=== PATIENT | female | born 1935 | race Caucasian/White ===

== ENCOUNTER 2023-11-10 18:07 | Inpatient (IN) | payer MEDICARE, SELFPAY ==
[2023-11-10 11:53] VITALS: BP 126/64
[2023-11-10 13:04] VITALS: BP 126/59
[2023-11-10] MEDS: MORPHINE SULFATE 2 MG IV (14:32)
[2023-11-10 14:34] LABS: % Basophils 0.5 % (0-2); % Eosinophils 1.5 % (0-6); % Immature Granulocytes 0.7 % (0-0.5); % Lymphocytes 3.8 % (20.5-51.1); % Monocytes 8.3 % (1.7-9.3); % Neutrophils 85.2 % (42.2-75.2); Absolute Eosinophils 0.1 10^3/uL (0-0.7); Absolute Lymphocytes 0.2 10^3/uL (1.2-3.4); Absolute Monocytes 0.5 10^3/uL (0.1-0.6); Absolute Neutrophils 5.2 10^3/uL (1.4-6.5); Hematocrit 22.2 % (37.0-47.0); Hemoglobin 7.2 g/dL (12.0-16.0); Mean Corp Hgb Conc. 32.4 g/dL (33.0-37.0); Mean Corpuscular Hgb 30.1 pg (27.0-31.0); Mean Corpuscular Volume 92.9 fL (81.0-99.0); Mean Platelet Volume 11.4 fL (7.4-10.4); Nucleated Red Blood Cells % 0.3 %; Platelet Count 109 10^3/uL (130-400); Red Blood Cell Count 2.39 10^6/uL (4.20-5.40); White Blood Cell Count 6.1 10^3/uL (4.8-10.8)
[2023-11-10 14:36] LABS: Lactic Acid 0.8 mmol/L (0.7-2.0)
[2023-11-10 14:46] LABS: NT-proBNP 13100 pg/ml
[2023-11-10 14:48] LABS: ALT (SGPT) < 10 U/L (0-35); AST (SGOT) 27 U/L (14-36); Albumin 3.5 g/dl (3.5-5.0); Alkaline Phosphatase 61 U/L (38-126); Calcium 8.9 mg/dl (8.4-10.2); Carbon Dioxide 19 mmol/L (22-30); Chloride 99 mmol/L (98-107); Glucose 104 mg/dl (70-99); Potassium 3.7 mmol/L (3.5-5.1); Sodium 135 mmol/L (135-145); Total Bilirubin 1.9 mg/dl (0.2-1.3); Total Protein 5.6 g/dl (6.3-8.2)
[2023-11-10 15:06] LABS: Blood Urea Nitrogen 120 mg/dl (7-17)
--- NOTE | 2023-11-10 15:32 | ED.GENMED ---
History of Present Illness
<Alona Camarena PA-C - Last Filed: 11/10/23 17:30>
General
Chief Complaint: Musculo-Skeletal Complaint
Source: patient and care technician
Exam Limitations: none
Time Seen by Provider: 11/10/23 13:16
Nursing documentation reviewed up to this point in time: agreed with
Travel History
Have you had any contact with someone who has COVID-19?: No
Do you have any symptoms of coronavirus? Fever > 100 degrees, chills, cough, shortness of breath, sore throat, loss of taste or smell, muscle aches, or headache?: No
History of Present Illness
History of Present Illness:
pt i s a 88 y/o F with very complex medical history
just discharged after lengthy hospitalization
came in with bruising/rash to b/l CORBY and stayed for pulm edema on lasix, michelle, thrombocytopenia and anemia
was discharged 3 days ago after 2 weeks stay for diuresis and had consultations with hematology/oncology and infectious disease
pt had a fall yesterday when she was with her caregiver and was able to be helped up but has had severe left knee pain since and is unable to move or put weight on it
this is a change from baseline, even though she has always had knee pain, had xray while here and it wa sneg.
she has ongoing petechiae and bruising on her legs which is baseline for weeks, and acutally that's why the family and caregiver brought her here originally
it appears according to discharge summary that she had low platelets and anemia hg 7-8 region
she had her eliquis held it appears
she had no head strike yesterday
no relief with tylenol and tramadol for apin
has round the clock care at home
pt says she chronically is hypothermic
Past History
<Alona Camarena PA-C - Last Filed: 11/10/23 17:30>
Past History
ED Past Medical History: Arrthythmia (a fib), Cancer (lymphoma with chemo), HTN, Hypercholesterolemia, Hypothyroidism, Other (Renal insufficiency, bowel obstruction, diverticulitis, hemorrhoids, stress incontinence, gout, osteoarthritis, cellulitis,
cataracts), Other (thrombocytopenia, vitamin D deficiency) and Other (UTI, parathyroid abnl., arthritis, iron-deficiency anemia)
ED Past Surgical History: Bowel resection (ileostomy), Cardiac (Cardioversion, cardiac catheterization, pacemaker insertion multiple times), Gynecological (D&C, hysterectomy in 1984), Orthopedic (Left knee arthroscopy, left knee replacement lumbar
laminectomy) and Other (ventral hernia repair)
Social History
Tobacco: Former smoker
Alcohol: None
Drug: None
Personal:
Living: with family
Employment: Retired
Family History
Family History: Other (non contributory)
Review of Systems
<Alona Camarean PA-C - Last Filed: 11/10/23 17:30>
Review of Systems
Allergies reviewed?: Yes
All Other Systems: Not applicable
Phy Exam
<Alona Camarena PA-C - Last Filed: 11/10/23 17:30>
Physical Exam
Physical Exam:
GENERAL: Alert , uncomfortable with movement, elevated BMI
HEAD: NCAT
NECK: no midline tenderness, active ROM intact, no paraspinal muscle tenderness;
CARDIAC: Regular rate and rhythm, + edema, symmetric
LUNGS: Clear breath sounds bilaterally, no acute respiratory distress, no wheezes/rales/rhonchi
ABDOMEN: Soft, without focal tenderness, no r/g, no cvat, normal bowel sounds, nondistended
NEUROLOGICAL: Alert and oriented, no focal neuro deficits, CN intact, 5/5 strength, sensation intact,
SKIN: Warm and dry,
petechiae b/l LE, sepcifically in L knee region, which family says chronic
hyperpigmentation and bruising to b/l LE
MUSCULOSKELETAL: edema
left knee swelling with tendenress and severely limited ROM ,specifically flexion
PSYCH: Normal and appropriate interaction.
Course
<Alona Camarena PA-C - Last Filed: 11/10/23 17:30>
Orders/Labs/Results
Orders:
Orders
11/10/23 13:48
CR Knee - Left 4 Or More View* Urgent
Comment:
Reason For Exam: left knee pain after fall
11/10/23 13:49
Electrocardiogram (*1) Urgent
Reason for Study: Other
Other Reason for Exam: sepsis
EKG- Treatment ONCE
11/10/23 13:50
Morphine Sulfate 2 mg IV NOW STA
11/10/23 14:12
Complete Blood Count/With Diff Urgent
Comprehensive Metabolic Panel Urgent
Lactic Acid Q4H
Comment: CANCEL 2nd LACTIC ACID IF 1st LACTIC ACID IS LESS THAN 2
NT-proBNP Urgent
TSH Reflex To Free T4 Urgent
Blood Culture Q30M
JORDIN Source: Blood/Venous
Specimen Description:
11/10/23 Dinner
Sodium, 2 Gram
At Your Request: Full Participation
Fluid Restriction: 1440 mL/day (48 oz)
11/10/23 15:51
Venous Doppler Lwr Ext Left [US Periph Venous LOWER Ext LT] Urgent
Comment:
Reason For Exam: lower ext edema
11/10/23 16:33
CT Lower Ext W/o Iv Cont Lt Urgent
Comment:
Reason For Exam: femur fracture, eval down below knee hardware
11/10/23 17:27
Admit/Transfer Patient As Directed
Co-Sign Provider:
Level of Care: Inpatient admission
Assign to:: Medical/Surgical
Physician / Group: Can
Diagnosis: Left Femur Fracture
Reason for Hospitalization: Ortho Consult, Femur Fracture
Expected length of stay greater than two midnights?: Yes
ELOS- Estimated Length of Stay in days: 3
I certify the patient meets the requirements for IP care: Yes
11/10/23 17:31
Code Status As Directed
Resuscitation Status: Full Code
11/10/23 19:47
Melatonin 10 mg PO HSPRN PRN
Tramadol HCl [Ultram] 25 mg PO Q6HPRN PRN
11/10/23 19:47
ORTHOPEDIC CONSULT Routine
Consulting Provider: Simon Beltran
Was physician already notified: Yes
Activity As Directed
Activity Level: Bedrest
I&O [Intake/ Output] As Directed
Frequency: q12h
Immobilizer [Braces/Immobilizers] As Directed
Type of Brace/Immobilizer: Knee immobilizer
Location for Brace/Immobilizer: Left
Vital Signs As Directed
Frequency: Per unit guidelines
Weight As Directed
Frequency: Daily
Weight Bearing Status As Directed
Weight bearing to: Left lower extremity
Type: Non Wt. bearing
Ot Eval And Treat Routine
Pt Eval And Treat Routine
Activity Level: Out of Bed- Chair
With Assistance
11/10/23 20:00
Apixaban [Eliquis] 2.5 mg PO BID
HydrALAZINE [Apresoline] 25 mg PO BID
Torsemide [Demadex] 40 mg PO BID AT 0800,1600
11/10/23 20:51
Alprazolam [Xanax] 0.25 mg PO TIDPRN PRN
11/10/23 21:24
Blood Culture Q30M
JORDIN Source: Blood/Venous
Specimen Description:
11/10/23 22:00
Acetaminophen [Tylenol] 1,000 mg PO TID
11/11/23 06:53
Basic Metabolic Panel IN AM
Complete Blood Count/No Diff IN AM
Magnesium IN AM
11/11/23 07:00
Levothyroxine [Synthroid] 50 mcg PO DAILY AT 0700
11/11/23 08:00
Allopurinol [Zyloprim] 100 mg PO DAILY
Cholecalciferol (Vitamin D3) [VITAMIN D3 (cholecalciferol)] 2,000 units PO DAILY
ISOSORBIDE MONOnitrate ER [Imdur (Extended Release)] 30 mg PO DAILY
Metoprolol Xl [Toprol Xl] 50 mg PO DAILY
11/11/23 16:00
vibegron [Gemtesa] 0 mg PO DAILY@1600
11/12/23 08:00
Loratadine [Claritin] 10 mg PO Q48H
11/12/23 16:00
Ferrous Sulfate [Feosol] 325 mg PO MOWEFR@1600
Abnormal Lab Results
11/10/23
14:12
RBC 2.39 L 10^6/uL
(4.20-5.40)
Hgb 7.2 L g/dL
(12.0-16.0)
Hct 22.2 L %
(37.0-47.0)
MCHC 32.4 L g/dL
(33.0-37.0)
RDW 17.0 H %
(11.5-14.5)
Plt Count 109 L 10^3/uL
(130-400)
MPV 11.4 H fL
(7.4-10.4)
Absolute Lymphs (auto) 0.2 L 10^3/uL
(1.2-3.4)
Immature Gran % 0.7 H %
(0-0.5)
Neutrophils % 85.2 H %
(42.2-75.2)
Lymphocytes % 3.8 L %
(20.5-51.1)
Carbon Dioxide 19 L mmol/L
(22-30)
BUN 120 H* mg/dl
(7-17)
Creatinine 1.8 H mg/dL
(0.6-1.0)
Glucose 104 H mg/dl
(70-99)
Total Bilirubin 1.9 H mg/dl
(0.2-1.3)
Total Protein 5.6 L g/dl
(6.3-8.2)
11/10/23 14:12
11/10/23 14:12
Vital Signs
Initial and Last Documented VS:
Initial Vital Signs
Pulse Resp BP Pulse Ox
74 18 126/64 96
11/10/23 11:53 11/10/23 11:53 11/10/23 11:53 11/10/23 11:53
Last Documented Vital Signs
Temp Pulse Resp BP Pulse Ox
96.7 F L 77 16 106/47 97
11/10/23 23:50 11/10/23 23:50 11/10/23 23:50 11/10/23 23:50 11/10/23 23:50
<Mahesh Hare MD - Last Filed: 11/11/23 08:08>
Orders/Labs/Results
Orders:
Orders
11/10/23 13:48
CR Knee - Left 4 Or More View* Urgent
Comment:
Reason For Exam: left knee pain after fall
11/10/23 13:49
Electrocardiogram (*1) Urgent
Reason for Study: Other
Other Reason for Exam: sepsis
EKG- Treatment ONCE
11/10/23 13:50
Morphine Sulfate 2 mg IV NOW STA
11/10/23 14:12
Complete Blood Count/With Diff Urgent
Comprehensive Metabolic Panel Urgent
Lactic Acid Q4H
Comment: CANCEL 2nd LACTIC ACID IF 1st LACTIC ACID IS LESS THAN 2
NT-proBNP Urgent
TSH Reflex To Free T4 Urgent
Blood Culture Q30M
JORDIN Source: Blood/Venous
Specimen Description:
11/10/23 Dinner
Sodium, 2 Gram
At Your Request: Full Participation
Fluid Restriction: 1440 mL/day (48 oz)
11/10/23 15:51
Venous Doppler Lwr Ext Left [US Periph Venous LOWER Ext LT] Urgent
Comment:
Reason For Exam: lower ext edema
11/10/23 16:33
CT Lower Ext W/o Iv Cont Lt Urgent
Comment:
Reason For Exam: femur fracture, eval down below knee hardware
11/10/23 17:27
Admit/Transfer Patient As Directed
Co-Sign Provider:
Level of Care: Inpatient admission
Assign to:: Medical/Surgical
Physician / Group: Can
Diagnosis: Left Femur Fracture
Reason for Hospitalization: Ortho Consult, Femur Fracture
Expected length of stay greater than two midnights?: Yes
ELOS- Estimated Length of Stay in days: 3
I certify the patient meets the requirements for IP care: Yes
11/10/23 17:31
Code Status As Directed
Resuscitation Status: Full Code
11/10/23 19:47
Melatonin 10 mg PO HSPRN PRN
Tramadol HCl [Ultram] 25 mg PO Q6HPRN PRN
11/10/23 19:47
ORTHOPEDIC CONSULT Routine
Consulting Provider: Simon Beltran
Was physician already notified: Yes
Activity As Directed
Activity Level: Bedrest
I&O [Intake/ Output] As Directed
Frequency: q12h
Immobilizer [Braces/Immobilizers] As Directed
Type of Brace/Immobilizer: Knee immobilizer
Location for Brace/Immobilizer: Left
Vital Signs As Directed
Frequency: Per unit guidelines
Weight As Directed
Frequency: Daily
Weight Bearing Status As Directed
Weight bearing to: Left lower extremity
Type: Non Wt. bearing
Ot Eval And Treat Routine
Pt Eval And Treat Routine
Activity Level: Out of Bed- Chair
With Assistance
11/10/23 20:00
Apixaban [Eliquis] 2.5 mg PO BID
HydrALAZINE [Apresoline] 25 mg PO BID
Torsemide [Demadex] 40 mg PO BID AT 0800,1600
11/10/23 20:51
Alprazolam [Xanax] 0.25 mg PO TIDPRN PRN
11/10/23 21:24
Blood Culture Q30M
JORDIN Source: Blood/Venous
Specimen Description:
11/10/23 22:00
Acetaminophen [Tylenol] 1,000 mg PO TID
11/11/23 06:53
Basic Metabolic Panel IN AM
Complete Blood Count/No Diff IN AM
Magnesium IN AM
11/11/23 07:00
Levothyroxine [Synthroid] 50 mcg PO DAILY AT 0700
11/11/23 08:00
Allopurinol [Zyloprim] 100 mg PO DAILY
Cholecalciferol (Vitamin D3) [VITAMIN D3 (cholecalciferol)] 2,000 units PO DAILY
ISOSORBIDE MONOnitrate ER [Imdur (Extended Release)] 30 mg PO DAILY
Metoprolol Xl [Toprol Xl] 50 mg PO DAILY
11/11/23 16:00
vibegron [Gemtesa] 0 mg PO DAILY@1600
11/12/23 08:00
Loratadine [Claritin] 10 mg PO Q48H
11/12/23 16:00
Ferrous Sulfate [Feosol] 325 mg PO MOWEFR@1600
Abnormal Lab Results
11/10/23
14:12
RBC 2.39 L 10^6/uL
(4.20-5.40)
Hgb 7.2 L g/dL
(12.0-16.0)
Hct 22.2 L %
(37.0-47.0)
MCHC 32.4 L g/dL
(33.0-37.0)
RDW 17.0 H %
(11.5-14.5)
Plt Count 109 L 10^3/uL
(130-400)
MPV 11.4 H fL
(7.4-10.4)
Absolute Lymphs (auto) 0.2 L 10^3/uL
(1.2-3.4)
Immature Gran % 0.7 H %
(0-0.5)
Neutrophils % 85.2 H %
(42.2-75.2)
Lymphocytes % 3.8 L %
(20.5-51.1)
Carbon Dioxide 19 L mmol/L
(22-30)
BUN 120 H* mg/dl
(7-17)
Creatinine 1.8 H mg/dL
(0.6-1.0)
Glucose 104 H mg/dl
(70-99)
Total Bilirubin 1.9 H mg/dl
(0.2-1.3)
Total Protein 5.6 L g/dl
(6.3-8.2)
11/10/23 14:12
11/10/23 14:12
Vital Signs
Initial and Last Documented VS:
Initial Vital Signs
Pulse Resp BP Pulse Ox
74 18 126/64 96
11/10/23 11:53 11/10/23 11:53 11/10/23 11:53 11/10/23 11:53
Last Documented Vital Signs
Temp Pulse Resp BP Pulse Ox
96.7 F L 77 16 106/47 97
11/10/23 23:50 11/10/23 23:50 11/10/23 23:50 11/10/23 23:50 11/10/23 23:50
<Alona Camarena PA-C - Last Filed: 11/10/23 17:30>
MDM/Problems Addressed
Differential Diagnosis Includes:
knee fracture, contusion, deconditioning, hypothermia, sepsis, hypocortisolism
MDM/Problems Addressed:
88 yo F with many chronic medical problems
here for L knee pain after fall yesterday
unable to bear weight
has ongoin chronic problems that she just had lengthy hospitalization for: CHF, thrombocytopenia, anemia of renal disease, hypothermia which she says is chornic
the major issue today being the left knee pain
she has evidence of distal left femur fracture on xray indep reviewed by me
d/w ortho who recommended ct the knee but likely non op
recommended knee immbob but dueto body habiuts unable
will admit to meidcine
pending cultures but the hypothermia is likely chronic and not sepsis.
<Alona Camarena PA-C - Last Filed: 11/10/23 17:30>
*Critical Care Note
Total Time (30-74mins, 75-104mins- exclusive of procedures): Not Applicable
ED Attending Note
<Alona Camarena PA-C - Last Filed: 11/10/23 17:30>
-
Portions of this chart may have been created with voice recognition software.� Occasional wrong word or��sound alike� substitutions may have occurred due to the inherent limitations of voice recognition software.
<Mahesh Hare MD - Last Filed: 11/11/23 08:08>
ED Attending Note
I performed the substantive portion of visit, reviewed & personally made and approve the management plan that is documented in note by myself or EM.: Yes
ED Attending Note:
Patient with recurrent hypothermia, along with worsening left lower leg pain, as well as new trauma from fall yesterday. Patient started on Rakan hugger and will be admitted for further evaluation and treatment.
X-ray with likely femur fracture. Hardware intact. At the recommendation of orthopaedic surgery, will obtain CT lower extremity. No indication for any antibiotics at this time. In addition, will obtain LE US to evaluate for DVT, as Eliquis was for
brief period during recent admission.
Blood culture pending.
Discharge Plan
Departure
Patient Disposition: Admit
Date of Disposition: 11/10/23
Time of Disposition: 16:36
Admit to: Med/Surg
Presentation/result/management discussed w/ accepting MD/DO: Hospitalist
Condition: Fair
Covid-19: Not Applicable
Discharge Problem:
Closed femur fracture
Interventions
Interventions:
*Risk Screen - Suicide Last Done: 11/10/23 20:32
*General Assessment Last Done: 11/10/23 12:35
ED- Fall Risk Assessment Last Done: 11/10/23 12:35
*ED COVID-19 Vaccine History Last Done: 11/10/23 20:30
*Nursing Disposition Last Done: 11/10/23 20:32
ED-Musculoskeletal Assessment Last Done: 11/10/23 12:35
ED- Neurological Assessment Last Done: 11/10/23 12:35
ED-Skin Assessment Last Done: 11/10/23 12:35
Discharge Date and Time
Discharge Date/Time: 11/10/23 20:33
[2023-11-10 16:34] VITALS: BP 125/82
--- NOTE | 2023-11-10 17:15 | HPS.HSE ---
Addendum entered and electronically signed by Chrissie North MD 11/10/23 18:09:
I agree with the PA-C note
Gen: on ryan james
HEENT : no jvd
lungs : clear
psych: calm
gi: soft non distended
MSK : bilat lower extrem edema
neuro : non focal, follow commands
Distal left femur frx - pain control
await CT scan LE for further characterization
consult ortho, suspected non operative management
PT/OT
Chronic hypothermia - monitor
Anemia of chronic disease -maintain > 7, consent obtained in ER.
Chronic HFpEF/afib (permanent) - compensated from cardiovascular standpoint at this time.
d/w pt dtr
Original Note:
Family Physician
-
Family Physician: Tray Valadez
Chief Complaint
-
Fall with Left Knee Pain
History of Present Illness
Patient is an 88-year-old female with complex past medical history with recent hospitalization due to bilateral lower extremity ecchymosis secondary to thrombocytopenia exacerbated by Eliquis use, who presents with severe left knee pain following a
fall yesterday. Additional history is provided by caregiver and patient's daughter at the bedside. Patient sustained a fall in her bathroom yesterday. It. She got tangled up in her walker. It did not appear that she landed on the knee, but
since the incident she has been complaining of increased left knee pain with inability to bear weight. Workup in the emergency department revealed a mid/distal left femur fracture. Hospitalist group was consulted to evaluate the patient for
admission to the hospital.
Medical History
Past Medical History
Past Medical History: Reports Other
Additional Past Medical History:
Chronic HFpEF
Permanent Atrial Fibrillation
Sick sinus syndrome s/p pacemaker
Essential Hypertension
Hyperlipidemia
CKD stage IIIB
Anemia of Chronic Disease
Hypothyroidism
Dementia
Anxiety/Depression
Morbid Obesity due to excess calories
Rheumatoid arthritis
Chronic Pain
Hx ITP
Hx ESBL E. coli UTI
Hx Ho syndrome
Past Surgical History: Reports Other
Additional Past Surgical History:
Ileostomy
Hysterectomy
Ventral hernia repair
Left knee replacement
Lumbar laminectomy
Social History
Tobacco: Former Smoker
Alcohol: None
Living: With Family
Family History
Family History: Not pertinent
Allergies / Home Medications
Allergies reflects when Allergies were last updated in [facility].
Home Medications with original date entered in [facility]
Allergy/Medication List:
Allergies
Allergy/AdvReac Type Severity Reaction Status Date / Time
amoxicillin [From Augmentin] Allergy mouth Verified 11/10/23 11:51
sores;
tolerated
ceftriaxone
carvedilol [From Coreg] Allergy Unknown Verified 11/10/23 11:51
chlorpheniramine polistirex Allergy SEE Verified 11/10/23 11:51
[From Tussionex] COMMENTS
clavulanic acid Allergy mouth sores Verified 11/10/23 11:51
[From Augmentin]
codeine [Codeine] Allergy blood Verified 11/10/23 11:51
pressure
and mood
changes
erythromycin base Allergy MYCINS = Verified 11/10/23 11:51
[Erythromycin Base] SEVERE
THRUSH
hydrocodone polistirex Allergy SEE Verified 11/10/23 11:51
[From Tussionex] COMMENTS
iodine [Iodine] Allergy difficulty Verified 11/10/23 11:51
breathing
oxycodone HCl [From Tylox] Allergy blood Verified 11/10/23 11:51
pressure
and mood
changes
rofecoxib [From Vioxx] Allergy high blood Verified 11/10/23 11:51
pressure,
fluid
retention
shellfish derived Allergy difficulty Verified 11/10/23 11:51
[Shellfish Derived] breathing
tolmetin sodium Allergy high blood Verified 11/10/23 11:51
[From Tolectin DS] pressure,
fluid
retention
Home Medications
apixaban 2.5 mg tablet (Eliquis) 2.5 mg PO BID Blood clot prevention/tx 02/10/21
allopurinol 100 mg tablet 100 mg PO DAILY Gout 11/11/21
levothyroxine 50 mcg tablet 50 mcg PO DAILY Thyroid 11/11/21
metoprolol succinate 50 mg tablet,extended release 24 hr 50 mg PO DAILY Heart disease/condition 11/11/21
methenamine hippurate 1 gram tablet 1 g PO BID Urinary Issue 09/18/23
vibegron 75 mg tablet (Gemtesa) 75 mg PO DAILY@1600 Urinary Issue 09/18/23
d-mannose 500 mg capsule 500 mg PO DAILY Supplement 10/22/23
ferrous sulfate 325 mg (65 mg iron) tablet 325 mg PO MOWEFR@1600 Supplement 10/22/23
therapeutic multivitamin 2 tab PO DAILY Supplement 10/22/23
hydralazine 25 mg tablet 25 mg PO BID 30 days #60 tabs 11/04/23
isosorbide mononitrate 30 mg tablet,extended release 24 hr 30 mg PO DAILY 30 days #30 tabs 11/04/23
torsemide 20 mg tablet 40 mg PO BID Fluid Retention/Swelling 30 days #60 tabs 11/04/23
Lions Brooks Supplement 2 cap PO DAILY 11/10/23
acetaminophen 650 mg tablet,extended release 1,300 mg PO TID 11/10/23
alprazolam 0.5 mg tablet 0.25 mg PO TID PRN mild anxiety 11/10/23
alprazolam 0.5 mg tablet 0.5 mg PO TID PRN severe anxiety 11/10/23
cholecalciferol (vitamin D3) 50 mcg (2,000 unit) tablet 50 mcg PO DAILY 11/10/23
diclofenac sodium 1 % topical gel 4 g topical BID apply to left knee 11/10/23
diphenhydramine HCl 25 mg capsule (Benadryl) 25 mg PO HS PRN sleep 11/10/23
fexofenadine 180 mg tablet 180 mg PO DAILY 11/10/23
melatonin 5 mg tablet 10 mg PO HS PRN sleep 11/10/23
miconazole nitrate 2 % topical powder (Miconazorb AF) 1 applic topical BID PRN apply under B/L breasts/armpits/abd 11/10/23
pramoxine 1 % lotion 1 applic topical BID PRN apply to B/L arms/legs/back/hands 11/10/23
tramadol 50 mg tablet 50 mg PO TID 11/10/23
Review of Systems
-
Unable to obtain full review of systems at this time due to: Dementia
Respiratory: Denies Cough or Trouble Breathing
Cardiac: Denies Chest Pain or Palpitations
Physical Exam
Vital Signs
Vital Signs
Temp Pulse Resp BP Pulse Ox
95.7 F L 72 18 125/82 98
11/10/23 16:34 11/10/23 16:34 11/10/23 13:04 11/10/23 16:34 11/10/23 16:34
Physical Exam
General: Comfortable, Conversant and Morbidly Obese
HEENT: Anicteric and Moist mucous membranes
Respiratory: Clear (Anteriorly) and Non Labored Respirations
Cardiac: S1/S2 and Regular Rhythm
GI: Soft and Non Tender
Musculoskeletal: No Clubbing, No Cyanosis and Other (Bilateral Lower Ext Edema)
Skin: Warm, Dry and Other (Ecchymosis and Petechiae to bilateral lower extremities)
Laboratory Results
-
11/10/23 14:12
11/10/23 14:12
Laboratory Results
Lactic Acid Cancelled 11/10/23 18:00
Total Bilirubin 1.9 mg/dl (0.2-1.3) H 11/10/23 14:12
AST 27 U/L (14-36) 11/10/23 14:12
ALT < 10 U/L (0-35) 11/10/23 14:12
Alkaline Phosphatase 61 U/L (38-126) 11/10/23 14:12
Data Reviewed
-
Lab Data: Labs Reviewed by me
Old Records: Reviewed
Impression/Plan
-
Distal Left Femur Fracture
-Consult Orthopedics
-Check CT Scan
-Continue immobilization and non-weight bearing
-Continue Tylenol and Tramadol
Hypothermia, likely autonomic dysfunction
-Monitor temperature
Thrombocytopenia
-Platelet count is improving
Anemia of Chronic Disease
-Hgb slightly lower than baseline
-Continue iron supplement
-Blood consent obtained
Elevated Bilirubin and BUN
-Both are likely related to ecchymosis and blood reabsorption
Chronic HFpEF
-Continue torsemide
-Monitor Is&Os and Daily Weights
Permanent Atrial Fibrillation
Sick Sinus Syndrome s/p pacemaker
-Continue Eliquis for anticoagulation
-Continue metoprolol for rate control
Essential Hypertension
-Continue metoprolol, hydralazine and isosorbide mononitrate
CKD stage IIIB
-Creatinine at baseline
Hypothyroidism
-Continue levothyroxine
Dementia
-Monitor for mood/behavior changes during hospitalization
Anxiety/Depression/Insomnia
-Continue low dose alprazolam prn
-Continue melatonin
Morbid Obesity due to excess calories
-Affects all aspects of care
DVT proph: Eliquis
Code Status: Full Code
[2023-11-10 20:11] VITALS: BP 130/60
--- NOTE | 2023-11-10 20:15 | PTCARENOTE ---
Pt arrived from ED, transferred to bed. aaox3, cooperative. pox 95% on RA. denies cp or dizziness. oriented to room. Pt c/o severe L hip pain, states 'I take tramadol at home for my arthritis and it barely helps. I am having a lot of pain.'
Contacted house [employer], tramadol 50mg po x1 now ordered. Spoke to daughter on the phone in regards to medications ordered and pain regimen. Call luevano within reach.
[2023-11-10] MEDS: TYLENOL 1000 MG PO (21:29)
[2023-11-10] MEDS: ELIQUIS 2.5 MG PO (21:30)
[2023-11-10] MEDS: MELATONIN 10 MG PO (21:30)
[2023-11-10] MEDS: DEMADEX 40 MG PO (21:31)
[2023-11-10] MEDS: ULTRAM 50 MG PO (21:31)
[2023-11-10] MEDS: APRESOLINE 25 MG PO (21:35)
[2023-11-10 23:50] VITALS: BP 106/47
[2023-11-11 06:00] VITALS: BMI 33.2
[2023-11-11] MEDS: ULTRAM 25 MG PO ×2 (06:04→20:14)
[2023-11-11] MEDS: SYNTHROID 50 MCG PO (06:05)
[2023-11-11 07:00] VITALS: BP 125/71
[2023-11-11 08:07] LABS: Hematocrit 23.8 % (37.0-47.0); Hemoglobin 7.5 g/dL (12.0-16.0); Mean Corp Hgb Conc. 31.5 g/dL (33.0-37.0); Mean Corpuscular Hgb 30.6 pg (27.0-31.0); Mean Corpuscular Volume 97.1 fL (81.0-99.0); Mean Platelet Volume 10.6 fL (7.4-10.4); Platelet Count 107 10^3/uL (130-400); Red Blood Cell Count 2.45 10^6/uL (4.20-5.40); Red Cell Dist. Width 17.2 % (11.5-14.5); White Blood Cell Count 5.9 10^3/uL (4.8-10.8)
--- NOTE | 2023-11-11 08:12 | W.PN.UPDATE ---
Update Note
Progress Note Update
Full orthopedic consult dictated:
Dx: Left periprosthetic femur fracture
Plan: Nonsurgical treatment with knee immobilizer, NWB, serial xrays. Follow up 2 weeks for xray in office.
[2023-11-11 08:38] LABS: Blood Urea Nitrogen 111 mg/dl (7-17); Calcium 8.9 mg/dl (8.4-10.2); Carbon Dioxide 21 mmol/L (22-30); Chloride 102 mmol/L (98-107); Estimated Creatinine Clearance 20 ml/min; Glucose 80 mg/dl (70-99); Magnesium 2.1 mg/dl (1.6-2.3); Potassium 3.6 mmol/L (3.5-5.1); Sodium 136 mmol/L (135-145)
[2023-11-11] MEDS: IMDUR (EXTENDED RELEASE) 30 MG PO (09:08)
[2023-11-11] MEDS: TYLENOL 1000 MG PO ×2 (09:08→15:18)
[2023-11-11] MEDS: TOPROL XL 50 MG PO (09:08)
[2023-11-11] MEDS: ELIQUIS 2.5 MG PO ×2 (09:09→20:11)
[2023-11-11] MEDS: VITAMIN D3 (cholecalciferol) 2000 UNITS PO (09:09)
[2023-11-11] MEDS: APRESOLINE 25 MG PO (09:10)
[2023-11-11] MEDS: DEMADEX 40 MG PO ×2 (09:10→15:18)
[2023-11-11] MEDS: ZYLOPRIM 100 MG PO (09:10)
--- NOTE | 2023-11-11 11:18 | W.PN.HOSP.TC ---
Addendum entered and electronically signed by Chrissie North MD 11/11/23 16:41:
suspected traumatic fracture
Original Note:
Today's Communication/Plan
-
see plan
Assessment / Plan
Assessment / Plan
Distal Left Femur Fracture
-apprec Orthopedics
-non operative management planned. repeat imaging in 2 weeks, outpt follow up with ortho.
-Continue immobilization and non-weight bearing
-Continue Tylenol and Tramadol
Hypothermia, likely autonomic dysfunction
-Monitor temperature
resolved. no acute infectious sx.
Thrombocytopenia
-Platelet count is improving
Anemia of Chronic Disease
-Hgb slightly lower than baseline
-Continue iron supplement
-Blood consent obtained
Elevated Bilirubin and BUN
-Both are likely related to ecchymosis and blood reabsorption
Chronic HFpEF
-Continue torsemide
-Monitor Is&Os and Daily Weights
Permanent Atrial Fibrillation
Sick Sinus Syndrome s/p pacemaker
-Continue Eliquis for anticoagulation
-Continue metoprolol for rate control
Essential Hypertension
-Continue metoprolol, hydralazine and isosorbide mononitrate
CKD stage IIIB
-Creatinine at baseline
Hypothyroidism
-Continue levothyroxine
Dementia
-Monitor for mood/behavior changes during hospitalization
Anxiety/Depression/Insomnia
-Continue low dose alprazolam prn
-Continue melatonin
Morbid Obesity due to excess calories
-Affects all aspects of care
DVT proph: Eliquis
Code Status: Full Code
Anticipated Discharge: 24 - 48 hours
Subjective/Interval History
-
Date of Service: November 11, 2023
pt states pain is adequately controlled
Objective Data
-
Labs:
Laboratory Results
11/11/23
06:53
WBC 5.9
Hgb 7.5 L
Hct 23.8 L
Plt Count 107 L
Sodium 136
Potassium 3.6
Chloride 102
Carbon Dioxide 21 L
BUN 111 H*
Creatinine 1.9 H
Glucose 80
Calcium 8.9
Vital Signs:
Vital Signs
Temp Pulse Resp BP Pulse Ox
97.7 F 84 18 125/71 96
11/11/23 07:00 11/11/23 07:00 11/11/23 07:00 11/11/23 07:00 11/11/23 07:00
I&O
11/10/23 11/11/23 11/12/23
06:59 06:59 06:59
Output Total 600 / 600
Balance -600 / -600
Review of Systems
-
History Source: Patient
All other systems: Reviewed and negative
Physical Exam
-
General: Well Developed and No Apparent Distress
HEENT: Normocephalic, Atraumatic and Moist Mucous Membranes
Respiratory: Clear to Auscultation
Cardiac: Regular Rhythm and S1/S2; Negative Murmur, Rub or Gallop
GI: Soft, Nontender, Nondistended and Normal Bowel Sounds; Negative Organomegaly
Rectal: Deferred by Provider
Musculoskeletal: No Clubbing, No Cyanosis, No Edema and Other (lle in immobilizer.)
Skin: Negative Rash
Neuro: Nonfocal/Grossly Intact
Psych: Calm
Data Reviewed
-
Labs: Labs Reviewed by me
--- NOTE | 2023-11-11 11:30 | WOUNDNOTE ---
APOLINAR RN NOTE: Admitted with closed femur fracture, see chart for PMH. Patient known to service from frequent admissions. Spoke to caregiver Mo at bedside who confirmed appliances were changed yesterday. No leakage noted from pouches, family is
bringing in supplies. Mo states she is still using Hydrofera blue dressing to tiny ulcer above mucous fistula and is healing. Caregiver to change next appliance. No other skin issues reported by nursing or caregiver, will sign off unless needed.
[2023-11-11 11:44] VITALS: BP 94/43; O2SAT 93
[2023-11-11 12:06] VITALS: BP 94/43; PULSE 71; O2SAT 94
--- NOTE | 2023-11-11 14:03 | CM ---
client success manager reviewed patient's chart and met with patient and caregiver, Yaz in home. Patient lives with her daughter and son in law, in a 2 story home, patient has a 1st floor set up with hospital bed, walker and w/c in home, patient has aides
12/05, and family supports, patient is current with [facility]. Patient is waiting on a call from the physical therapy and is not sure whether she should take patient home of skilled placement, [facility]
Plan; Home v's skilled placement.
[2023-11-11 15:00] VITALS: BP 104/56
--- NOTE | 2023-11-11 15:02 | PN.CDI ---
CDI
- -
CDI:
Physician Documentation Request
Admit Date: 11/10/23 18:07
Dear Doctor Can,
Please review the following and provide your response in the progress notes.
Clinical Indicators:
Bone Densitometry, 10/24/09
#IMPRESSION: Osteopenia in the femoral neck which carries an increase risk for fracture.
ED, 11/10/23
#ED Past Surgical History: ...Gynecological (D&C, hysterectomy in 1984)...
H+P, 11/10/23
#Patient sustained a fall in her bathroom yesterday.
#She got tangled up in her walker.
It did not appear that she landed on the knee,
#...but since the incident she has been complaining of
#...increased left knee pain with inability to bear weight.
#Workup in the emergency department revealed a mid/distal left femur fracture.
Ortho PN, 11/11/23
#...Left periprosthetic femur fracture
#...Nonsurgical treatment with knee immobilizer, NWB, serial xrays.
Please clarify the following regarding the likely/suspected etiology of the left femur periprosthetic fracture:
Multifactorial, due to low level trauma and age related osteoporosis
Traumatic fracture only
Other
Type Fracture
Age-related With current pathological fx
Drug induced (specify drug) without current pathological fx
Idiopathic
Osteoporosis of disuse
Due to post surgical malabsorption
Post traumatic
Post oophorectomy osteoporosis
Use of terms such as suspected, likely, concern for, or probable (associated with a specific diagnosis that is being evaluated, monitored, or treated as if it exists) are acceptable and can be coded in the inpatient setting, when documented at the
time of discharge.
Thank you,
Ladonna Mejnivar RN BSN CCDS
CDI Specialist
please contact via tiger text
Please use your independent medical judgment in providing your response.
[2023-11-11 19:58] VITALS: BP 103/55
[2023-11-11] MEDS: APRESOLINE PO (20:11)
[2023-11-11] MEDS: TYLENOL PO (22:51)
[2023-11-11 23:15] VITALS: BP 110/55
[2023-11-12] MEDS: SYNTHROID 50 MCG PO (05:58)
[2023-11-12 06:00] VITALS: BMI 34.4
[2023-11-12 07:00] VITALS: BP 136/57
[2023-11-12 09:01] LABS: % Basophils 0.7 % (0-2); % Eosinophils 2.5 % (0-6); % Immature Granulocytes 0.7 % (0-0.5); % Lymphocytes 7.3 % (20.5-51.1); % Monocytes 12.8 % (1.7-9.3); Absolute Eosinophils 0.1 10^3/uL (0-0.7); Absolute Lymphocytes 0.4 10^3/uL (1.2-3.4); Absolute Monocytes 0.7 10^3/uL (0.1-0.6); Absolute Neutrophils 4.3 10^3/uL (1.4-6.5); Hematocrit 22.4 % (37.0-47.0); Hemoglobin 7.3 g/dL (12.0-16.0); Mean Corp Hgb Conc. 32.6 g/dL (33.0-37.0); Mean Corpuscular Hgb 30.5 pg (27.0-31.0); Mean Corpuscular Volume 93.7 fL (81.0-99.0); Mean Platelet Volume 9.2 fL (7.4-10.4); Nucleated Red Blood Cells % 0.4 %; Platelet Count 108 10^3/uL (130-400); Red Blood Cell Count 2.39 10^6/uL (4.20-5.40); Red Cell Dist. Width 17.5 % (11.5-14.5); White Blood Cell Count 5.6 10^3/uL (4.8-10.8)
[2023-11-12] MEDS: ELIQUIS 2.5 MG PO ×2 (09:07→22:01)
[2023-11-12] MEDS: CLARITIN 10 MG PO (09:07)
[2023-11-12] MEDS: APRESOLINE 25 MG PO (09:08)
[2023-11-12] MEDS: IMDUR (EXTENDED RELEASE) 30 MG PO (09:09)
[2023-11-12] MEDS: TYLENOL 1000 MG PO ×3 (09:09→22:01)
[2023-11-12] MEDS: ZYLOPRIM 100 MG PO (09:09)
[2023-11-12] MEDS: DEMADEX 40 MG PO ×2 (09:10→15:17)
[2023-11-12] MEDS: TOPROL XL 50 MG PO (09:10)
[2023-11-12] MEDS: VITAMIN D3 (cholecalciferol) 2000 UNITS PO (09:11)
[2023-11-12 09:17] LABS: Blood Urea Nitrogen 116 mg/dl (7-17); Calcium 8.9 mg/dl (8.4-10.2); Carbon Dioxide 23 mmol/L (22-30); Chloride 100 mmol/L (98-107); Estimated Creatinine Clearance 21 ml/min; Glucose 120 mg/dl (70-99); Potassium 3.7 mmol/L (3.5-5.1); Sodium 138 mmol/L (135-145)
[2023-11-12 09:56] LABS: Creatine Phosphokinase < 20 U/L (30-135)
--- NOTE | 2023-11-12 12:07 | W.PN.HOSP.TC ---
Today's Communication/Plan
-
Monitor vitals
See plan
PT/OT
Pain control
Monitor renal function
Check UA
Bladder scan
Assessment / Plan
Assessment / Plan
Distal Left Femur Fracture
suspected traumatic fracture
-apprec Orthopedics
-non operative management planned. repeat imaging in 2 weeks, outpt follow up with ortho.
-Continue immobilization and non-weight bearing
-Continue Tylenol and Tramadol
Hypothermia, likely autonomic dysfunction
-Monitor temperature
resolved. no acute infectious sx.
Thrombocytopenia
-Platelet count is improving
Anemia of Chronic Disease
-Hgb slightly lower than baseline
-Continue iron supplement
-Blood consent obtained
Suspect YAHAIRA on CKD
Check bladder scan
check UA
Follows with outpatient
Chronic HFpEF
-Continue torsemide
-Monitor Is&Os and Daily Weights
Permanent Atrial Fibrillation
Sick Sinus Syndrome s/p pacemaker
-Continue Eliquis for anticoagulation
-Continue metoprolol for rate control
Essential Hypertension
-Continue metoprolol, hydralazine and isosorbide mononitrate
CKD stage IIIB
-Creatinine at baseline
Hypothyroidism
-Continue levothyroxine
Dementia
-Monitor for mood/behavior changes during hospitalization
Anxiety/Depression/Insomnia
-Continue low dose alprazolam prn
-Continue melatonin
Morbid Obesity due to excess calories
-Affects all aspects of care
DVT proph: Eliquis
Code Status: Full Code
General: Well Developed and No Apparent Distress
HEENT: Normocephalic, Atraumatic and Moist Mucous Membranes
Respiratory: Clear to Auscultation
Cardiac: Regular Rhythm and S1/S2; Negative Murmur, Rub or Gallop
GI: Soft, Nontender, Nondistended and Normal Bowel Sounds; Negative Organomegaly
Rectal: Deferred by Provider
Musculoskeletal: No Clubbing, No Cyanosis, No Edema and Other (lle in immobilizer.)
Skin: Negative Rash
Neuro: Nonfocal/Grossly Intact
Psych: Calm
Anticipated Discharge: Within 24 hours
Subjective/Interval History
-
Date of Service: November 12, 2023
denies pain
Objective Data
-
Labs:
Laboratory Results
11/12/23
08:51
WBC 5.6
Hgb 7.3 L
Hct 22.4 L
Plt Count 108 L
Sodium 138
Potassium 3.7
Chloride 100
Carbon Dioxide 23
BUN 116 H*
Creatinine 1.9 H
Glucose 120 H
Calcium 8.9
Vital Signs:
Vital Signs
Temp Pulse Resp BP Pulse Ox
97.6 F 69 18 136/69 98
11/12/23 07:00 11/12/23 09:08 11/12/23 07:00 11/12/23 09:08 11/12/23 07:00
I&O
11/11/23 11/12/23 11/13/23
06:59 06:59 06:59
Intake Total 720 / 720
Output Total 1580 / 1580
Balance -860 / -860
--- NOTE | 2023-11-12 14:34 | CM ---
Chart reviewed and will await family decision on plan for patient, family may want to take patient home at discharge. Patient has 24/7 caregivers in home.
Plan; Await final decision from patient's daughter.
[2023-11-12 15:00] VITALS: BP 131/67
[2023-11-12] MEDS: FEOSOL 325 MG PO (15:17)
[2023-11-12 15:25] LABS: Urine Albumin Negative (Neg - Trace); Urine Bilirubin Negative (Negative); Urine Character Clear (Clear); Urine Color Yellow; Urine Glucose Negative (Negative); Urine Ketone Negative (Negative); Urine Leukocyte 2+ (Negative); Urine Nitrite Negative (Negative); Urine Occult Blood Negative (Negative); Urine Urobilinogen Negative (Neg - 1+)
[2023-11-12 15:32] VITALS: BP 125/65; PULSE 80
[2023-11-12 15:32] LABS: Urine Squamous Cell 0-2 /LPF (Few)
[2023-11-12 15:33] LABS: Urine Red Blood Cell None Seen /HPF (0-2); Urine White Cell >100 /HPF (0-5); Urine Yeast Few (Negative)
[2023-11-12 21:15] VITALS: BP 114/49
[2023-11-12] MEDS: APRESOLINE PO (21:16)
[2023-11-12] MEDS: XANAX 0.25 MG PO (22:01)
--- NOTE | 2023-11-12 22:23 | PTCARENOTE ---
Pt w/ blood tinged stool in ileostomy. Heme test +. WELDING INSPECTOR aware.
[2023-11-12] MEDS: ULTRAM 25 MG PO (22:36)
[2023-11-13] VITALS (7 sets, daily range): BP systolic 108–129; BP diastolic 50–61; BMI 33.5
[2023-11-13] MEDS: SYNTHROID 50 MCG PO (06:06)
[2023-11-13] MEDS: TOPROL XL 50 MG PO (07:53)
[2023-11-13] MEDS: VITAMIN D3 (cholecalciferol) 2000 UNITS PO (07:54)
[2023-11-13] MEDS: APRESOLINE 25 MG PO (07:54)
[2023-11-13] MEDS: ELIQUIS 2.5 MG PO ×2 (07:54→21:25)
[2023-11-13] MEDS: IMDUR (EXTENDED RELEASE) 30 MG PO (07:54)
[2023-11-13] MEDS: TYLENOL 1000 MG PO ×3 (07:54→21:22)
[2023-11-13] MEDS: ZYLOPRIM 100 MG PO (07:55)
[2023-11-13] MEDS: DEMADEX 40 MG PO ×2 (07:55→16:07)
[2023-11-13 08:06] LABS: % Basophils 0.8 % (0-2); % Eosinophils 3.5 % (0-6); % Immature Granulocytes 0.8 % (0-0.5); % Lymphocytes 7.4 % (20.5-51.1); % Monocytes 11.6 % (1.7-9.3); % Neutrophils 75.9 % (42.2-75.2); Absolute Eosinophils 0.2 10^3/uL (0-0.7); Absolute Lymphocytes 0.4 10^3/uL (1.2-3.4); Absolute Monocytes 0.6 10^3/uL (0.1-0.6); Absolute Neutrophils 3.9 10^3/uL (1.4-6.5); Hematocrit 21.6 % (37.0-47.0); Mean Corp Hgb Conc. 31.9 g/dL (33.0-37.0); Mean Corpuscular Hgb 30.5 pg (27.0-31.0); Mean Corpuscular Volume 95.6 fL (81.0-99.0); Mean Platelet Volume 10.5 fL (7.4-10.4); Nucleated Red Blood Cells % 0.4 %; Platelet Count 127 10^3/uL (130-400); Red Blood Cell Count 2.26 10^6/uL (4.20-5.40); Red Cell Dist. Width 17.5 % (11.5-14.5); White Blood Cell Count 5.2 10^3/uL (4.8-10.8)
[2023-11-13 08:08] LABS: Blood Urea Nitrogen 115 mg/dl (7-17); Calcium 8.7 mg/dl (8.4-10.2); Carbon Dioxide 23 mmol/L (22-30); Chloride 99 mmol/L (98-107); Estimated Creatinine Clearance 24 ml/min; Glucose 113 mg/dl (70-99); Potassium 3.6 mmol/L (3.5-5.1); Sodium 136 mmol/L (135-145); eGFR 31.21
[2023-11-13 08:35] LABS: Hemoglobin 6.9 g/dL (12.0-16.0)
--- NOTE | 2023-11-13 10:26 | CM ---
customer acquisition manager reviewed patient's chart and spoke with patient's daughter Brittny this am, and per Brittny she is not sure whether she should take patient home with 24/7 caregivers or look at skilled placement, [facility].
Plan; To follow up with patient and assist with discharge planning.
[2023-11-13 11:03] LABS: Iron 44 ug/dl (37-170)
[2023-11-13 11:15] LABS: Percent Saturation 13 % (20-50); Total Iron Binding Capacity 317 ug/dl (265-497)
[2023-11-13] MEDS: ROCEPHIN 1000 MG IV (11:22)
[2023-11-13] MEDS: STERILE WATER FOR INJECTION 10 ML IV (11:22)
--- NOTE | 2023-11-13 12:07 | W.PN.HOSP.TC ---
Today's Communication/Plan
-
Monitor vital signs see plan
Continue antibiotics
PT/OT
Transfuse 1 unit of blood today
Monitor ileostomy
if concern of bleeding then hold eliquis
Daughter updated over the phone
Assessment / Plan
Assessment / Plan
Distal Left Femur Fracture
suspected traumatic fracture
-apprec Orthopedics
-non operative management planned. repeat imaging in 2 weeks, outpt follow up with ortho.
-Continue immobilization and non-weight bearing
-Continue Tylenol and Tramadol
Hypothermia, likely autonomic dysfunction
-Monitor temperature
resolved. no acute infectious sx.
Thrombocytopenia
-Platelet count is improving
Anemia of Chronic Disease
mild heme + stool overnight in ileostomy but now normal stool
spoke with daughter; will transfuse 1 unit and monitor
hgb 6.9 today
some low hgb is also 2/2 fall
-Continue iron supplement
cw eliquis for now
Suspect YAHAIRA on CKD
baseline 1.5
Check bladder scan
UA suggest UTI; follow urine cx,cw abx
Follows with outpatient
Chronic HFpEF
-Continue torsemide
-Monitor Is&Os and Daily Weights
Permanent Atrial Fibrillation
Sick Sinus Syndrome s/p pacemaker
-Continue Eliquis for anticoagulation
-Continue metoprolol for rate control
Essential Hypertension
-Continue metoprolol, hydralazine and isosorbide mononitrate
Hypothyroidism
-Continue levothyroxine
Dementia
-Monitor for mood/behavior changes during hospitalization
Anxiety/Depression/Insomnia
-Continue low dose alprazolam
-Continue melatonin
Morbid Obesity due to excess calories
-Affects all aspects of care
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
Lymphoma status post chemotherapy
Chronic anemia of renal disease--Continue ferrous sulfate
Gout--Continue allopurinol
Overactive bladder--Continue Gemtesa if family can provide
DVT proph: Eliquis
Code Status: Full Code
General: Well Developed and No Apparent Distress
HEENT: Normocephalic, Atraumatic and Moist Mucous Membranes
Respiratory: Clear to Auscultation
Cardiac: Regular Rhythm and S1/S2; Negative Murmur, Rub or Gallop
GI: Soft, Nontender, Nondistended and Normal Bowel Sounds; Negative Organomegaly
Rectal: Deferred by Provider
Musculoskeletal: No Clubbing, No Cyanosis, No Edema and Other (lle in immobilizer.)
Skin: Negative Rash
Neuro: Nonfocal/Grossly Intact
Psych: Calm
I spent a total of 52 minutes with the patient or on the floor. More than 50% of this time involved counseling and coordination of care.
Anticipated Discharge: Within 24 hours
Subjective/Interval History
-
Date of Service: November 13, 2023
denies nausea
Objective Data
-
Labs:
Laboratory Results
11/13/23
06:43
WBC 5.2
Hgb 6.9 L*
Hct 21.6 L
Plt Count 127 L
Sodium 136
Potassium 3.6
Chloride 99
Carbon Dioxide 23
BUN 115 H*
Creatinine 1.6 H
Glucose 113 H
Calcium 8.7
Vital Signs:
Vital Signs
Temp Pulse Resp BP Pulse Ox
98.1 F 72 18 129/60 97
11/13/23 07:00 11/13/23 07:53 11/13/23 07:00 11/13/23 07:53 11/13/23 07:00
I&O
11/12/23 11/13/23 11/14/23
06:59 06:59 06:59
Intake Total 720 / 720 960 / 960
Output Total 1580 / 1580 200 / 200
Balance -860 / -860 760 / 760
[2023-11-13 12:12] LABS: Folate > 20.0 ng/ml (2.76-20); Vitamin B12 > 1000 pg/ml (239-931)
[2023-11-13] MEDS: XANAX 0.25 MG PO (14:35)
[2023-11-13] MEDS: APRESOLINE PO (20:26)
[2023-11-13] MEDS: XANAX 0.5 MG PO (21:23)
[2023-11-14 06:00] VITALS: BMI 33.7
[2023-11-14] MEDS: SYNTHROID 50 MCG PO (06:10)
[2023-11-14 07:30] VITALS: BP 107/45
[2023-11-14 08:59] LABS: % Basophils 0.6 % (0-2); % Immature Granulocytes 0.4 % (0-0.5); % Lymphocytes 7.4 % (20.5-51.1); % Monocytes 11.9 % (1.7-9.3); % Neutrophils 75.7 % (42.2-75.2); Absolute Eosinophils 0.2 10^3/uL (0-0.7); Absolute Lymphocytes 0.4 10^3/uL (1.2-3.4); Absolute Monocytes 0.6 10^3/uL (0.1-0.6); Absolute Neutrophils 3.8 10^3/uL (1.4-6.5); Hematocrit 24.9 % (37.0-47.0); Mean Corp Hgb Conc. 32.1 g/dL (33.0-37.0); Mean Corpuscular Hgb 30.4 pg (27.0-31.0); Mean Corpuscular Volume 94.7 fL (81.0-99.0); Mean Platelet Volume 10.4 fL (7.4-10.4); Nucleated Red Blood Cells % 0 %; Platelet Count 136 10^3/uL (130-400); Red Blood Cell Count 2.63 10^6/uL (4.20-5.40); Red Cell Dist. Width 17.7 % (11.5-14.5)
[2023-11-14] MEDS: IMDUR (EXTENDED RELEASE) 30 MG PO (09:10)
[2023-11-14] MEDS: APRESOLINE PO ×2 (09:10→21:29)
[2023-11-14] MEDS: TOPROL XL 50 MG PO (09:11)
[2023-11-14] MEDS: CLARITIN 10 MG PO (09:11)
[2023-11-14] MEDS: TYLENOL 1000 MG PO ×2 (09:11→17:58)
[2023-11-14] MEDS: DEMADEX 40 MG PO ×2 (09:11→17:58)
[2023-11-14] MEDS: ZYLOPRIM 100 MG PO (09:12)
[2023-11-14] MEDS: ELIQUIS 2.5 MG PO ×2 (09:12→21:30)
[2023-11-14] MEDS: VITAMIN D3 (cholecalciferol) 2000 UNITS PO (09:12)
[2023-11-14 09:30] LABS: Blood Urea Nitrogen 113 mg/dl (7-17); Calcium 8.7 mg/dl (8.4-10.2); Carbon Dioxide 25 mmol/L (22-30); Chloride 100 mmol/L (98-107); Estimated Creatinine Clearance 22 ml/min; Glucose 99 mg/dl (70-99); Potassium 3.6 mmol/L (3.5-5.1); Sodium 137 mmol/L (135-145)
[2023-11-14] MEDS: ROCEPHIN 1000 MG IV (10:52)
[2023-11-14] MEDS: STERILE WATER FOR INJECTION 10 ML IV (10:52)
[2023-11-14] MEDS: ULTRAM 25 MG PO ×2 (11:03→18:00)
[2023-11-14 11:30] VITALS: BP 101/41; PULSE 75
--- NOTE | 2023-11-14 15:55 | CM ---
environmental compliance manager reviewed patient's chart and met with patient and caregiver at bedside today, disability case manager left a message for patient's daughter, Brittny young has been accepted at [facility], there are no beds at
[facility]. Patient can also be set up with [facility] [phone], fax [phone]. Patient has 24/7 caregivers.
Plan; Skilled v's home with [facility] and 24/7 caregivers.
[2023-11-14 16:10] VITALS: BP 105/54
--- NOTE | 2023-11-14 17:46 | W.PN.HOSP.TC ---
Today's Communication/Plan
-
recheck CBC, BMP
Nephro consult for tomorrow
Assessment / Plan
Assessment / Plan
Distal Left Femur Fracture
suspected traumatic fracture
-apprec Orthopedics
-non operative management planned. repeat imaging in 2 weeks, outpt follow up with ortho.
-Continue immobilization and non-weight bearing
-Continue Tylenol and Tramadol
Hypothermia, likely autonomic dysfunction
-Monitor temperature
resolved. no acute infectious sx.
Thrombocytopenia
-Platelet count is normal 136k
Anemia of Chronic Disease
mild heme + stool overnight in ileostomy but now normal stool
spoke with daughter; was transfused 1 unit
hgb 6.9--transfused-->8.0
some low hgb is also 2/2 fall
-Continue iron supplement
cw eliquis for now, will recheck Hgb tomorrow, if drops may need to stop Eliquis
Suspect YAHAIRA on CKD
baseline 1.5
Check bladder scan, call placed to nursing, bladder scan needs to be done, will also order US by radiology
UA suggest UTI; follow urine cx negative, pt currently on Rocephin
Follows with outpatient. Discussed with Dr Hollis, routine consult for tomorrow
Chronic HFpEF
-Continue torsemide
-Monitor Is&Os and Daily Weights
Permanent Atrial Fibrillation
Sick Sinus Syndrome s/p pacemaker
-Continue Eliquis for anticoagulation
-Continue metoprolol for rate control
Essential Hypertension
-Continue metoprolol, hydralazine and isosorbide mononitrate
Hypothyroidism
-Continue levothyroxine
Dementia
-Monitor for mood/behavior changes during hospitalization
Anxiety/Depression/Insomnia
-Continue low dose alprazolam
-Continue melatonin
Morbid Obesity due to excess calories
-Affects all aspects of care
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
Lymphoma status post chemotherapy
Chronic anemia of renal disease--Continue ferrous sulfate
Gout--Continue allopurinol
Overactive bladder--Continue Gemtesa if family can provide
DVT proph: Eliquis
complex situation
Code Status: Full Code
Anticipated Discharge: > 48 hours
Subjective/Interval History
-
Date of Service: November 14, 2023
Home health aide in room, discussed with dgt by phone
Objective Data
-
Labs:
Laboratory Results
11/14/23
07:20
WBC 5.0
Hgb 8.0 L
Hct 24.9 L
Plt Count 136
Sodium 137
Potassium 3.6
Chloride 100
Carbon Dioxide 25
BUN 113 H*
Creatinine 1.8 H
Glucose 99
Calcium 8.7
Vital Signs:
Vital Signs
Temp Pulse Resp BP Pulse Ox
97.5 F 72 16 105/54 99
11/14/23 16:10 11/14/23 16:10 11/14/23 16:10 11/14/23 16:10 11/14/23 16:10
I&O
11/13/23 11/14/23 11/15/23
06:59 06:59 06:59
Intake Total 960 / 960 970 / 970
Output Total 200 / 200 1000 / 1000
Balance 760 / 760 -30 / -30
Review of Systems
-
History Source: Patient, Family, Guardian and Coordinated Provider
Constitutional: Denies Fever
EENT: Reports No Symptoms Reported
Respiratory: Reports No Symptoms
Cardiac: Reports No Symptoms
Abdomen/GI: Reports No Symptoms
Musculoskeletal: Reports Joint Pain (distal left femur fx)
Physical Exam
-
General: Well Developed, Well Nourished, No Apparent Distress and Appears Chronically Ill
HEENT: Normocephalic, Atraumatic and Moist Mucous Membranes
Respiratory: Clear to Auscultation; Negative Wheezes, Rales or Rhonchi
Cardiac: Regular Rhythm and S1/S2
GI: Soft, Nontender and Nondistended
Genito-urinary: No Costovertebral Tender
Musculoskeletal: No Clubbing and No Cyanosis
Skin: Warm and Dry
Neuro: Awake and Alert
[2023-11-14] MEDS: FEOSOL 325 MG PO (17:58)
[2023-11-14] MEDS: XANAX PO (21:37)
[2023-11-14] MEDS: TYLENOL PO (21:37)
[2023-11-14 23:00] VITALS: BP 117/54
[2023-11-15 01:42] LABS: Transferrin 217 mg/dL (200-360)
[2023-11-15 06:00] VITALS: BMI 33.3
[2023-11-15] MEDS: SYNTHROID 50 MCG PO (07:08)
[2023-11-15 07:09] VITALS: BP 129/50
[2023-11-15 07:38] LABS: % Basophils 0.6 % (0-2); % Eosinophils 5.1 % (0-6); % Immature Granulocytes 0.4 % (0-0.5); % Lymphocytes 5.7 % (20.5-51.1); % Monocytes 11.4 % (1.7-9.3); % Neutrophils 76.8 % (42.2-75.2); Absolute Eosinophils 0.3 10^3/uL (0-0.7); Absolute Lymphocytes 0.3 10^3/uL (1.2-3.4); Absolute Monocytes 0.6 10^3/uL (0.1-0.6); Absolute Neutrophils 3.9 10^3/uL (1.4-6.5); Hematocrit 25.4 % (37.0-47.0); Hemoglobin 8.2 g/dL (12.0-16.0); Mean Corp Hgb Conc. 32.3 g/dL (33.0-37.0); Mean Corpuscular Hgb 30.3 pg (27.0-31.0); Mean Corpuscular Volume 93.7 fL (81.0-99.0); Mean Platelet Volume 10.1 fL (7.4-10.4); Nucleated Red Blood Cells % 0 %; Platelet Count 138 10^3/uL (130-400); Red Blood Cell Count 2.71 10^6/uL (4.20-5.40); Red Cell Dist. Width 17.6 % (11.5-14.5); White Blood Cell Count 5.1 10^3/uL (4.8-10.8)
[2023-11-15 08:09] LABS: Blood Urea Nitrogen 106 mg/dl (7-17); Calcium 8.5 mg/dl (8.4-10.2); Carbon Dioxide 24 mmol/L (22-30); Chloride 104 mmol/L (98-107); Estimated Creatinine Clearance 24 ml/min; Glucose 95 mg/dl (70-99); Potassium 3.6 mmol/L (3.5-5.1); Sodium 136 mmol/L (135-145); eGFR 31.21
[2023-11-15] MEDS: TYLENOL 1000 MG PO ×2 (09:45→15:11)
[2023-11-15] MEDS: VITAMIN D3 (cholecalciferol) 2000 UNITS PO (09:46)
[2023-11-15] MEDS: ELIQUIS 2.5 MG PO ×2 (09:46→20:14)
[2023-11-15] MEDS: DEMADEX 40 MG PO ×2 (09:46→15:11)
[2023-11-15] MEDS: APRESOLINE 25 MG PO (09:46)
[2023-11-15] MEDS: ZYLOPRIM 100 MG PO (09:46)
[2023-11-15] MEDS: TOPROL XL 50 MG PO (09:46)
[2023-11-15] MEDS: IMDUR (EXTENDED RELEASE) 30 MG PO (09:57)
[2023-11-15] MEDS: ROCEPHIN 1000 MG IV (10:20)
[2023-11-15] MEDS: STERILE WATER FOR INJECTION 10 ML IV (10:20)
[2023-11-15] MEDS: ULTRAM 25 MG PO (10:23)
--- NOTE | 2023-11-15 15:02 | CON.MD ---
Consultation - Medical
-
IMP:
Distal Left Femur Fracture-traumatic, non operative management planned. repeat imaging in 2 weeks, outpt follow up with ortho.
Hypothermia, likely autonomic dysfunction
Anemia of Chronic Disease on ALICE through heme
mild heme + stool overnight in ileostomy but now normal stool
YAHAIRA with CKD [address] Byrne
chr Azotemia
chr D CHF
h/p small-mod pleural effusion bilat
UTI
Permanent atrial fibrillation with pacemaker
Essential hypertension
Dementia with behavioral disturbances
Hypothyroidism
Chronic pain on narcotics
Anxiety/depression
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
Lymphoma status post chemotherapy
Thrombocytopenia
OA
gout
Overactive bladder
EF 50%, DDstage2, mod TR, pulm Art pressure 61mmhg
Plan:
Recent d/c after treating CHF back in few days with fall and distal femur fx , plan non operative
mild YAHAIRA cr improving to baseline, cont diuretics as ordered
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
wt decreasing, if cr increases more likely decrease Torsemide
chr azotemia no change
Bps table
follow h/h, s/p PRBC this admit , fe def noted-start IV fe therapy, will likelu dose ALICE base don last dose out pt
chronically ill with multiple admits
d/w family at bedside
[id number]
[2023-11-15 15:52] VITALS: BP 105/59
--- NOTE | 2023-11-15 16:23 | CM ---
Patient asleep bedside, private caregivers present in room, report patients daughter Brittny is best one to contact. CM spoke with Brittny, inquiring about how soon after discharge patient needs to be seen and the frequency she needs to be seen by the
Orthopedic Doctor, also asking to see the XRay and if she can speak with doctor. Brittny reports she is going to try to schedule a tour at [facility]. CM will continue to follow for discharge planning needs in regards to home with VN and 24/7 care vs
SNF.
Plan: uncertain, home with 24/7 care and VN vs SNF.
--- NOTE | 2023-11-15 18:43 | W.PN.HOSP.TC ---
Today's Communication/Plan
-
await decision from dgt as to SNF
recheck labs
consider transfusion if Hgb drops further, for now continue Eliquis
Assessment / Plan
Assessment / Plan
Distal Left Femur Fracture
suspected traumatic fracture
-apprec Orthopedics
-non operative management planned. repeat imaging in 2 weeks, outpt follow up with ortho.
-Continue immobilization and non-weight bearing
-Continue Tylenol and Tramadol
Dgt considering SNF, she has several questions regarding the best place for her mother
Hypothermia, likely autonomic dysfunction
-Monitor temperature
resolved. no acute infectious sx.
Thrombocytopenia
-Platelet count is normal 136k
Anemia of Chronic Disease
mild heme + stool overnight in ileostomy but now normal stool
spoke with daughter; was transfused 1 unit
hgb 6.9--transfused-->8.0-->8.2
some low hgb is also 2/2 fall
-Continue iron supplement
cw eliquis for now, with Hgb holding steady to slightly improving, will continue Eliquis, if drops may need to stop Eliquis
Suspect YAHAIRA on CKD
baseline 1.5
Check bladder scan, call placed to nursing, bladder scan needs to be done, will also order US by radiology
UA suggest UTI; follow urine cx negative, pt currently on Rocephin
Follows with outpatient. Discussed with Dr Hollis, input appreciated
BUN/Creat 106/1.6
Chronic HFpEF
-Continue torsemide
-Monitor Is&Os and Daily Weights
Permanent Atrial Fibrillation
Sick Sinus Syndrome s/p pacemaker
-Continue Eliquis for anticoagulation
-Continue metoprolol for rate control
Essential Hypertension
-Continue metoprolol, hydralazine and isosorbide mononitrate
Hypothyroidism
-Continue levothyroxine
Dementia
-Monitor for mood/behavior changes during hospitalization
Anxiety/Depression/Insomnia
-Continue low dose alprazolam
-Continue melatonin
Morbid Obesity due to excess calories
-Affects all aspects of care
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
Lymphoma status post chemotherapy
Chronic anemia of renal disease--Continue ferrous sulfate
Gout--Continue allopurinol
Overactive bladder--Continue Gemtesa if family can provide
DVT proph: Eliquis
complex situation
Code Status: Full Code
Anticipated Discharge: > 48 hours
Subjective/Interval History
-
Date of Service: November 15, 2023
Reviewed with Brittny nix, multiple questions and concerns
Objective Data
-
Labs:
Laboratory Results
11/15/23
06:39
WBC 5.1
Hgb 8.2 L
Hct 25.4 L
Plt Count 138
Sodium 136
Potassium 3.6
Chloride 104
Carbon Dioxide 24
BUN 106 H*
Creatinine 1.6 H
Glucose 95
Calcium 8.5
Vital Signs:
Vital Signs
Temp Pulse Resp BP Pulse Ox
97.8 F 73 12 129/50 100
11/15/23 07:09 11/15/23 07:09 11/15/23 07:09 11/15/23 07:09 11/15/23 09:00
I&O
11/14/23 11/15/23 11/16/23
06:59 06:59 06:59
Intake Total 970 / 970 240 / 240
Output Total 1000 / 1000 550 / 550 1000 / 1000
Balance -30 / -30 -310 / -310 -1000 / -1000
Review of Systems
-
History Source: Patient, Family, Guardian and Coordinated Provider
Constitutional: Denies Fever
EENT: Reports No Symptoms Reported
Respiratory: Reports No Symptoms
Cardiac: Reports No Symptoms
Abdomen/GI: Reports No Symptoms
Musculoskeletal: Reports Joint Pain (distal left femur fx)
Physical Exam
-
General: Well Developed, Well Nourished, No Apparent Distress and Appears Chronically Ill
HEENT: Normocephalic, Atraumatic and Moist Mucous Membranes
Respiratory: Clear to Auscultation; Negative Wheezes, Rales or Rhonchi
Cardiac: Regular Rhythm and S1/S2
GI: Soft, Nontender, Nondistended and Ostomy
Genito-urinary: No Costovertebral Tender
Musculoskeletal: No Clubbing and No Cyanosis
Skin: Warm and Dry
Neuro: Awake and Alert
Psych: Apparent Dementia
[2023-11-15] MEDS: APRESOLINE PO (20:18)
[2023-11-15] MEDS: TYLENOL PO (21:36)
[2023-11-15] MEDS: XANAX PO (21:36)
[2023-11-15 23:00] VITALS: BP 127/59
[2023-11-16] MEDS: SYNTHROID 50 MCG PO (05:29)
[2023-11-16 06:00] VITALS: BMI 33.1
[2023-11-16 08:04] LABS: Blood Urea Nitrogen 111 mg/dl (7-17); Calcium 8.5 mg/dl (8.4-10.2); Carbon Dioxide 23 mmol/L (22-30); Chloride 99 mmol/L (98-107); Estimated Creatinine Clearance 26 ml/min; Glucose 99 mg/dl (70-99); Potassium 3.5 mmol/L (3.5-5.1); Sodium 136 mmol/L (135-145); eGFR 33.73
[2023-11-16 08:30] LABS: % Basophils 0.4 % (0-2); % Eosinophils 5.4 % (0-6); % Immature Granulocytes 0.6 % (0-0.5); % Monocytes 8.8 % (1.7-9.3); % Neutrophils 78.8 % (42.2-75.2); Absolute Eosinophils 0.3 10^3/uL (0-0.7); Absolute Lymphocytes 0.3 10^3/uL (1.2-3.4); Absolute Monocytes 0.4 10^3/uL (0.1-0.6); Absolute Neutrophils 3.9 10^3/uL (1.4-6.5); Hematocrit 23.8 % (37.0-47.0); Hemoglobin 7.7 g/dL (12.0-16.0); Mean Corp Hgb Conc. 32.4 g/dL (33.0-37.0); Mean Corpuscular Hgb 30.9 pg (27.0-31.0); Mean Corpuscular Volume 95.6 fL (81.0-99.0); Mean Platelet Volume 10.4 fL (7.4-10.4); Nucleated Red Blood Cells % 0 %; Platelet Count 143 10^3/uL (130-400); Red Blood Cell Count 2.49 10^6/uL (4.20-5.40)
[2023-11-16] MEDS: APRESOLINE 25 MG PO (08:51)
[2023-11-16] MEDS: ZYLOPRIM 100 MG PO (08:51)
[2023-11-16] MEDS: DEMADEX 40 MG PO ×2 (08:52→16:03)
[2023-11-16] MEDS: VITAMIN D3 (cholecalciferol) 2000 UNITS PO (08:52)
[2023-11-16] MEDS: ELIQUIS 2.5 MG PO ×2 (08:52→20:06)
[2023-11-16] MEDS: IMDUR (EXTENDED RELEASE) 30 MG PO (08:53)
[2023-11-16] MEDS: TYLENOL 1000 MG PO ×2 (08:53→16:03)
[2023-11-16] MEDS: CLARITIN 10 MG PO (08:53)
[2023-11-16] MEDS: TOPROL XL 50 MG PO (08:53)
[2023-11-16] MEDS: ROCEPHIN 1000 MG IV (08:54)
[2023-11-16] MEDS: STERILE WATER FOR INJECTION 10 ML IV (08:54)
--- NOTE | 2023-11-16 12:56 | W.PN.NEPH.PH ---
Today's Communication / Plan
-
cont diuretics
Assessment/Plan
-
IMP:
Distal Left Femur Fracture-traumatic, non operative management planned. repeat imaging in 2 weeks, outpt follow up with ortho.
Hypothermia, likely autonomic dysfunction
Anemia of Chronic Disease on ALICE through heme
mild heme + stool overnight in ileostomy but now normal stool
YAHAIRA with CKD [address]ne
chr Azotemia
chr D CHF
h/p small-mod pleural effusion bilat
UTI
Permanent atrial fibrillation with pacemaker
Essential hypertension
Dementia with behavioral disturbances
Hypothyroidism
Chronic pain on narcotics
Anxiety/depression
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
Lymphoma status post chemotherapy
Thrombocytopenia
OA
gout
Overactive bladder
EF 50%, DDstage2, mod TR, pulm Art pressure 61mmhg
Plan:
Recent d/c after treating CHF back in few days with fall and distal femur fx , plan non operative
mild YAHAIRA cr improving to baseline, cont diuretics as ordered
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
wt stable cont Torsemide
chr azotemia no change
Bps stable
follow h/h, s/p PRBC this admit , fe def noted-started IV fe therapy, will likely dose ALICE once we know the last dose
chronically ill with multiple admits, benefit from GOC discussion
d/w family at bedside
-
-
Date of Service: November 16, 2023
CC / HPI / ROS
-
Chief Complaint:
YAHAIRA, CKD, azotemia
History of Present Illness:
cr better at 1.5, BUN high 111
wt stable, Bp stable
hb low 7.7
Review of Systems:
no cp
pt confused intermittently
no sob at rest
does not want to be out of bed
Labs
-
Labs:
WBC 5.0 10^3/uL (4.8-10.8) 11/16/23 06:27
RBC 2.49 10^6/uL (4.20-5.40) L 11/16/23 06:27
Hgb 7.7 g/dL (12.0-16.0) L 11/16/23 06:27
Hct 23.8 % (37.0-47.0) L 11/16/23 06:27
Plt Count 143 10^3/uL (130-400) 11/16/23 06:27
Sodium 136 mmol/L (135-145) 11/16/23 06:27
Potassium 3.5 mmol/L (3.5-5.1) 11/16/23 06:27
Chloride 99 mmol/L (98-107) 11/16/23 06:27
Carbon Dioxide 23 mmol/L (22-30) 11/16/23 06:27
BUN 111 mg/dl (7-17) H* 11/16/23 06:27
Creatinine 1.5 mg/dL (0.6-1.0) H 11/16/23 06:27
eGFR 33.73 11/16/23 06:27
Glucose 99 mg/dl (70-99) 11/16/23 06:27
Calcium 8.5 mg/dl (8.4-10.2) 11/16/23 06:27
Zbq-C-Oudpsymxcyw Pept 76850 pg/ml 11/10/23 14:12
Albumin 3.5 g/dl (3.5-5.0) 11/10/23 14:12
Physical Exam
-
Vital Signs:
Vital Signs
Temp Pulse Resp BP Pulse Ox
98.2 F 74 16 130/63 94
11/15/23 23:00 11/15/23 23:00 11/15/23 23:00 11/16/23 08:53 11/15/23 23:00
Cardiovascular:: Regular rate and rhythm
Respiratory:: Bilateral: CTA (anteriorly)
Lung Excursion:: Normal
Abdomen:: Nontender and Soft
Extremity Edema:: +1: Bilateral: (chronic)
Kwan Catheter: No
[2023-11-16] MEDS: FERRLECIT 110 MG IV (13:39)
[2023-11-16 14:48] VITALS: BP 118/58; PULSE 73; O2SAT 100
[2023-11-16 15:29] VITALS: BP 133/63
[2023-11-16] MEDS: XANAX 0.25 MG PO (16:03)
--- NOTE | 2023-11-16 17:56 | W.PN.HOSP.TC ---
Today's Communication/Plan
-
abd CT scan tonight
Assessment / Plan
Assessment / Plan
Distal Left Femur Fracture
suspected traumatic fracture
-apprec Orthopedics
-non operative management planned. repeat imaging in 2 weeks, outpt follow up with ortho.
-Continue immobilization and non-weight bearing
-Continue Tylenol and Tramadol
Dgt considering SNF, she has several questions regarding the best place for her mother
Hypothermia, likely autonomic dysfunction
-Monitor temperature
resolved. no acute infectious sx.
Thrombocytopenia
-Platelet count is normal 136k
Anemia of Chronic Disease
mild heme + stool overnight in ileostomy but now normal stool
spoke with daughter; was transfused 1 unit
hgb 6.9--transfused-->8.0-->8.2-->7.7
some low hgb is also 2/2 fall
-Continue iron supplement
cw eliquis for now, with Hgb holding steady to slightly improving, will continue Eliquis, slight drop in Hgb may need to stop Eliquis
Suspect YAHAIRA on CKD
baseline 1.5
UA suggest UTI; follow urine cx negative, pt currently on Rocephin
Follows with outpatient. Discussed with Dr Hollis, input appreciated
BUN/Creat 106/1.6-->111/1.5
Renal Scan with renal cortical atrophy, medical renal disease, bladder with 245 ml urine
Abd pain onset today
discussed with dgt options of further evaluation. She would like at least a basic radiologic study, will order. Based on location and nature of pain, ischemic bowel must be considered
Chronic HFpEF
-Continue torsemide
-Monitor Is&Os and Daily Weights
Permanent Atrial Fibrillation
Sick Sinus Syndrome s/p pacemaker
-Continue Eliquis for anticoagulation
-Continue metoprolol for rate control
Essential Hypertension
-Continue metoprolol, hydralazine and isosorbide mononitrate
Hypothyroidism
-Continue levothyroxine
Dementia
-Monitor for mood/behavior changes during hospitalization
Anxiety/Depression/Insomnia
-Continue low dose alprazolam
-Continue melatonin
Morbid Obesity due to excess calories
-Affects all aspects of care
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
Lymphoma status post chemotherapy
Chronic anemia of renal disease--Continue ferrous sulfate
Gout--Continue allopurinol
Overactive bladder--Continue Gemtesa if family can provide
DVT proph: Eliquis
complex situation
Long discussion with dinah Mart regarding GOC. No decision at this point, requested she think about it
Code Status: Full Code
Anticipated Discharge: > 48 hours
Subjective/Interval History
-
Date of Service: November 16, 2023
Primary complaint is left mid abd pain
Objective Data
-
Labs:
Laboratory Results
11/16/23
06:27
WBC 5.0
Hgb 7.7 L
Hct 23.8 L
Plt Count 143
Sodium 136
Potassium 3.5
Chloride 99
Carbon Dioxide 23
BUN 111 H*
Creatinine 1.5 H
Glucose 99
Calcium 8.5
Vital Signs:
Vital Signs
Temp Pulse Resp BP Pulse Ox
97.9 F 71 16 130/63 98
11/16/23 15:29 11/16/23 15:29 11/16/23 15:29 11/16/23 16:03 11/16/23 15:29
I&O
11/15/23 11/16/23 11/17/23
06:59 06:59 06:59
Intake Total 240 / 240 390 / 390
Output Total 550 / 550 1720 / 1720
Balance -310 / -310 -1330 / -1330
Review of Systems
-
History Source: Patient, Family (dgt, Brittny in room), Guardian and Coordinated Provider
Constitutional: Denies Fever
EENT: Reports No Symptoms Reported
Respiratory: Reports No Symptoms
Cardiac: Reports No Symptoms
Abdomen/GI: Reports Abdominal Pain
Musculoskeletal: Reports Joint Pain (distal left femur fx)
Physical Exam
-
General: Well Developed, Well Nourished, No Apparent Distress and Appears Chronically Ill
HEENT: Normocephalic, Atraumatic and Moist Mucous Membranes
Respiratory: Clear to Auscultation; Negative Wheezes, Rales or Rhonchi
Cardiac: Regular Rhythm and S1/S2
GI: Soft, Nontender, Nondistended and Ostomy
Genito-urinary: No Costovertebral Tender
Musculoskeletal: No Clubbing and No Cyanosis
Skin: Warm and Dry
Neuro: Awake and Alert
Psych: Apparent Dementia
[2023-11-16] MEDS: MYLICON 80 MG PO (18:15)
[2023-11-16] MEDS: DESENEX/MITRAZOL/ZEASORB 1 APPLIC TOPICAL (20:06)
[2023-11-16] MEDS: XANAX 0.5 MG PO (20:09)
[2023-11-16] MEDS: APRESOLINE PO (20:14)
[2023-11-16] MEDS: TYLENOL PO (22:07)
[2023-11-16 23:58] VITALS: BP 126/57
[2023-11-17] MEDS: SYNTHROID 50 MCG PO (05:19)
[2023-11-17 05:46] VITALS: BMI 33.9
[2023-11-17 07:35] VITALS: BP 133/63
[2023-11-17 08:06] LABS: % Basophils 0.3 % (0-2); % Eosinophils 6.3 % (0-6); % Immature Granulocytes 0.5 % (0-0.5); % Lymphocytes 5.1 % (20.5-51.1); % Neutrophils 80.8 % (42.2-75.2); Absolute Eosinophils 0.4 10^3/uL (0-0.7); Absolute Lymphocytes 0.3 10^3/uL (1.2-3.4); Absolute Monocytes 0.4 10^3/uL (0.1-0.6); Absolute Neutrophils 4.6 10^3/uL (1.4-6.5); Hematocrit 24.6 % (37.0-47.0); Hemoglobin 8.1 g/dL (12.0-16.0); Mean Corp Hgb Conc. 32.9 g/dL (33.0-37.0); Mean Corpuscular Hgb 30.8 pg (27.0-31.0); Mean Corpuscular Volume 93.5 fL (81.0-99.0); Mean Platelet Volume 10.3 fL (7.4-10.4); Nucleated Red Blood Cells % 0 %; Platelet Count 141 10^3/uL (130-400); Red Blood Cell Count 2.63 10^6/uL (4.20-5.40); White Blood Cell Count 5.7 10^3/uL (4.8-10.8)
[2023-11-17] MEDS: VITAMIN D3 (cholecalciferol) 2000 UNITS PO (08:21)
[2023-11-17] MEDS: IMDUR (EXTENDED RELEASE) 30 MG PO (08:21)
[2023-11-17] MEDS: TYLENOL 1000 MG PO ×3 (08:21→19:47)
[2023-11-17] MEDS: APRESOLINE PO (08:22)
[2023-11-17] MEDS: TOPROL XL 50 MG PO (08:22)
[2023-11-17] MEDS: DEMADEX 40 MG PO ×2 (08:22→15:49)
[2023-11-17] MEDS: ZYLOPRIM 100 MG PO (08:23)
[2023-11-17] MEDS: ELIQUIS 2.5 MG PO ×2 (08:23→19:46)
[2023-11-17] MEDS: DESENEX/MITRAZOL/ZEASORB 1 APPLIC TOPICAL ×2 (08:23→20:00)
[2023-11-17 08:35] LABS: Blood Urea Nitrogen 109 mg/dl (7-17); Calcium 8.7 mg/dl (8.4-10.2); Carbon Dioxide 24 mmol/L (22-30); Chloride 99 mmol/L (98-107); Estimated Creatinine Clearance 26 ml/min; Glucose 99 mg/dl (70-99); Potassium 3.4 mmol/L (3.5-5.1); Sodium 135 mmol/L (135-145); eGFR 33.73
[2023-11-17] MEDS: STERILE WATER FOR INJECTION IV (10:50)
--- NOTE | 2023-11-17 11:56 | W.PN.NEPH.PH ---
Today's Communication / Plan
-
follow BMP
Assessment/Plan
-
IMP:
Distal Left Femur Fracture-traumatic, non operative management planned. repeat imaging in 2 weeks, outpt follow up with ortho.
Hypothermia, likely autonomic dysfunction
Anemia of Chronic Disease on ALICE through heme
mild heme + stool overnight in ileostomy but now normal stool
YAHAIRA with CKD [address]ne
chr Azotemia
chr D CHF
h/p small-mod pleural effusion bilat
UTI
Permanent atrial fibrillation with pacemaker
Essential hypertension
Dementia with behavioral disturbances
Hypothyroidism
Chronic pain on narcotics
Anxiety/depression
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
Lymphoma status post chemotherapy
Thrombocytopenia
OA
gout
Overactive bladder
EF 50%, DDstage2, mod TR, pulm Art pressure 61mmhg
Plan:
Recent d/c after treating CHF back in few days with fall and distal femur fx , plan non operative
follow BMP
continue diuretics
ALICE 20k today
-
-
Date of Service: November 17, 2023
CC / HPI / ROS
-
Chief Complaint:
YAHAIRA, CKD, azotemia
History of Present Illness:
cr stable at 1.5,
wt stable, Bp stable
hb up to 8.1
Review of Systems:
no cp
pt confused intermittently
no sob at rest
does not want to be out of bed
Labs
-
Labs:
WBC 5.7 10^3/uL (4.8-10.8) 11/17/23 07:18
RBC 2.63 10^6/uL (4.20-5.40) L 11/17/23 07:18
Hgb 8.1 g/dL (12.0-16.0) L 11/17/23 07:18
Hct 24.6 % (37.0-47.0) L 11/17/23 07:18
Plt Count 141 10^3/uL (130-400) 11/17/23 07:18
Sodium 135 mmol/L (135-145) 11/17/23 07:18
Potassium 3.4 mmol/L (3.5-5.1) L 11/17/23 07:18
Chloride 99 mmol/L (98-107) 11/17/23 07:18
Carbon Dioxide 24 mmol/L (22-30) 11/17/23 07:18
BUN 109 mg/dl (7-17) H* 11/17/23 07:18
Creatinine 1.5 mg/dL (0.6-1.0) H 11/17/23 07:18
eGFR 33.73 11/17/23 07:18
Glucose 99 mg/dl (70-99) 11/17/23 07:18
Calcium 8.7 mg/dl (8.4-10.2) 11/17/23 07:18
Pcn-F-Vtuknkjprbm Pept 51277 pg/ml 11/10/23 14:12
Albumin 3.5 g/dl (3.5-5.0) 11/10/23 14:12
Physical Exam
-
Vital Signs:
Vital Signs
Temp Pulse Resp BP Pulse Ox
98.5 F 72 18 119/71 94
11/17/23 07:35 11/17/23 08:22 11/17/23 07:35 11/17/23 08:22 11/17/23 07:35
Cardiovascular:: Regular rate and rhythm
Respiratory:: Bilateral: Coarse
Lung Excursion:: Normal
Abdomen:: Soft and Tender
Bowel Sounds:: Normal
Extremity Edema:: +2: Bilateral:
[2023-11-17] MEDS: EPOGEN 20000 UNITS SC (12:28)
--- NOTE | 2023-11-17 12:37 | CM ---
enrollment management manager reviewed patient's chart and met with patient and patient's daughter, Brittny this am. Per patient's daughter she has not decided on home v's skilled placement, per patient's daughter she wants to talk to physicians before making a
decision.
Plan; Await outcome of discussion with physicians to follow up with a plan for patient.
--- NOTE | 2023-11-17 12:47 | W.PN.HOSP.TC ---
Today's Communication/Plan
-
Monitor vital signs and see plan
monitor hgb
Discussed with daughter, CODE STATUS changed to DNR
dc planning; appears daughter rather wants to take patient home
Assessment / Plan
Assessment / Plan
Distal Left Femur Fracture
suspected traumatic fracture
-apprec Orthopedics
-non operative management planned. repeat imaging in 2 weeks, outpt follow up with ortho.
-Continue immobilization and non-weight bearing
-Continue Tylenol and Tramadol
Dgt considering SNF, she has several questions regarding the best place for her mother
Hypothermia, likely autonomic dysfunction
-Monitor temperature
resolved. no acute infectious sx.
Thrombocytopenia
-Platelet count is normal 136k
Anemia of Chronic Disease
mild heme + stool overnight in ileostomy but now normal stool
spoke with daughter; was transfused 1 unit
hgb 6.9 and was transfused, now improving
some low hgb is also 2/2 fall
-Continue iron supplement
cw eliquis for now, with Hgb holding steady to slightly improving, will continue Eliquis, slight drop in Hgb may need to stop Eliquis
epo
Suspect YAHAIRA on CKD
baseline 1.5
UA suggest UTI; follow urine cx negative
Follows with outpatient. Discussed with Dr Hollis, input appreciated
Finished antibiotic
Renal Scan with renal cortical atrophy, medical renal disease, bladder with 245 ml urine
Abd pain
now resolved
CT with cirrhosis,atlectasis; spoke with daughter and would not do any more workup
Chronic HFpEF
-Continue torsemide
-Monitor Is&Os and Daily Weights
Permanent Atrial Fibrillation
Sick Sinus Syndrome s/p pacemaker
-Continue Eliquis for anticoagulation
-Continue metoprolol for rate control
Essential Hypertension
-Continue metoprolol, hydralazine and isosorbide mononitrate
Hypothyroidism
-Continue levothyroxine
Dementia
-Monitor for mood/behavior changes during hospitalization
Anxiety/Depression/Insomnia
-Continue low dose alprazolam
-Continue melatonin
Morbid Obesity due to excess calories
-Affects all aspects of care
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
Lymphoma status post chemotherapy
Chronic anemia of renal disease--Continue ferrous sulfate
Gout--Continue allopurinol
Overactive bladder--Continue Gemtesa if family can provide
DVT proph: Eliquis
complex situation
Discussed with patient daughter, CODE STATUS changed to DNR
Code Status: Full Code
General: Well Developed, Well Nourished, No Apparent Distress and Appears Chronically Ill
HEENT: Normocephalic, Atraumatic and Moist Mucous Membranes
Respiratory: Clear to Auscultation; Negative Wheezes, Rales or Rhonchi
Cardiac: Regular Rhythm and S1/S2
GI: Soft, Nontender, Nondistended and Ostomy
Genito-urinary: No Costovertebral Tender
Musculoskeletal: No Clubbing and No Cyanosis
Skin: Warm and Dry
Neuro: Awake and Alert
Psych: Apparent Dementia
Anticipated Discharge: Within 24 hours
Subjective/Interval History
-
Date of Service: November 17, 2023
Patient is anxious at time
Objective Data
-
Labs:
Laboratory Results
11/17/23
07:18
WBC 5.7
Hgb 8.1 L
Hct 24.6 L
Plt Count 141
Sodium 135
Potassium 3.4 L
Chloride 99
Carbon Dioxide 24
BUN 109 H*
Creatinine 1.5 H
Glucose 99
Calcium 8.7
Vital Signs:
Vital Signs
Temp Pulse Resp BP Pulse Ox
98.5 F 72 18 119/71 94
11/17/23 07:35 11/17/23 08:22 11/17/23 07:35 11/17/23 08:22 11/17/23 07:35
I&O
11/16/23 11/17/23 11/18/23
06:59 06:59 06:59
Intake Total 390 / 390 390 / 390
Output Total 1720 / 1720 700 / 700
Balance -1330 / -1330 -310 / -310
[2023-11-17] MEDS: FERRLECIT 110 MG IV (13:11)
[2023-11-17] MEDS: KCL 270 MEQ IV (14:36)
[2023-11-17] MEDS: FEOSOL 325 MG PO (15:49)
[2023-11-17] MEDS: XANAX 0.25 MG PO (17:19)
[2023-11-17] MEDS: XANAX 0.5 MG PO (19:47)
[2023-11-17] MEDS: APRESOLINE 25 MG PO (19:47)
[2023-11-17] MEDS: MELATONIN 10 MG PO (21:37)
[2023-11-17 23:34] VITALS: BP 105/50
[2023-11-18] MEDS: SYNTHROID 50 MCG PO (05:14)
[2023-11-18 06:00] VITALS: BMI 33.6
[2023-11-18 07:45] VITALS: BP 122/57
[2023-11-18 08:17] LABS: Hematocrit 23.3 % (37.0-47.0); Hemoglobin 7.8 g/dL (12.0-16.0); Mean Corp Hgb Conc. 33.5 g/dL (33.0-37.0); Mean Corpuscular Hgb 30.1 pg (27.0-31.0); Mean Platelet Volume 10.6 fL (7.4-10.4); Platelet Count 147 10^3/uL (130-400); Red Blood Cell Count 2.59 10^6/uL (4.20-5.40); Red Cell Dist. Width 16.9 % (11.5-14.5); White Blood Cell Count 5.7 10^3/uL (4.8-10.8)
[2023-11-18 08:56] LABS: Blood Urea Nitrogen 104 mg/dl (7-17); Calcium 8.5 mg/dl (8.4-10.2); Carbon Dioxide 22 mmol/L (22-30); Chloride 105 mmol/L (98-107); Estimated Creatinine Clearance 30 ml/min; Glucose 92 mg/dl (70-99); Potassium 3.9 mmol/L (3.5-5.1); Sodium 135 mmol/L (135-145); eGFR 40.05
--- NOTE | 2023-11-18 09:19 | HOSPNOTE ---
Addendum entered by Renee Singh RN 11/18/23 13:52:
I was able to speak with daughter and she had to go into another meeting. I explained hospice and the philosophy and the daughter stated she would call me back with any further questions. Now I understand the patient is going home with [facility] and not hospice.
Original Note:
Spoke with daughter but she has to go in a meeting but will call me back to discuss hospice care. More information to follow.
[2023-11-18] MEDS: IMDUR (EXTENDED RELEASE) 30 MG PO (09:47)
[2023-11-18] MEDS: APRESOLINE 25 MG PO (09:47)
[2023-11-18] MEDS: CLARITIN 10 MG PO (09:47)
[2023-11-18] MEDS: TYLENOL 1000 MG PO ×3 (09:47→20:52)
[2023-11-18] MEDS: VITAMIN D3 (cholecalciferol) 50 MCG PO (09:47)
[2023-11-18] MEDS: DESENEX/MITRAZOL/ZEASORB 1 APPLIC TOPICAL ×2 (09:48→21:02)
[2023-11-18] MEDS: DEMADEX 40 MG PO (09:48)
[2023-11-18] MEDS: TOPROL XL 50 MG PO (09:48)
[2023-11-18] MEDS: ZYLOPRIM 100 MG PO (09:48)
[2023-11-18] MEDS: ELIQUIS 2.5 MG PO (09:48)
--- NOTE | 2023-11-18 12:12 | W.PN.HOSP.TC ---
Addendum entered and electronically signed by Rebel Beal MD 11/18/23 15:30:
Patient's daughter already spoke with palliative today and initially the patient can go home on palliative with eventual transition to hospice. However prior to discharge patient developed hematemesis and mild abdominal pain. Appears some
gastritis as well. Will give Zofran. Spoke with daughter again and given more risk of GI bleed daughter agreed with discontinuing further Eliquis. Contacted hospice. position description manager aware. Cancel discharge for today.
Original Note:
Today's Communication/Plan
-
Monitor vital signs and see plan
Discharge today
Updated daughter over the phone
Time of discharge 36 minutes
Assessment / Plan
Assessment / Plan
Distal Left Femur Fracture
suspected traumatic fracture
-apprec Orthopedics
-non operative management planned. repeat imaging in 2 weeks, outpt follow up with ortho.
-Continue immobilization and non-weight bearing
-Continue Tylenol and Tramadol
Hypothermia, likely autonomic dysfunction
-Monitor temperature
resolved. no acute infectious sx.
Thrombocytopenia
monitor
Anemia of Chronic Disease
mild heme + stool overnight in ileostomy but now normal stool
spoke with daughter; was transfused 1 unit
hgb 6.9 and was transfused, now improving
some low hgb is also 2/2 fall
-Continue iron supplement
cw eliquis for now, with Hgb holding steady to slightly improving, will continue Eliquis, slight drop in Hgb may need to stop Eliquis
epo
Suspect YAHAIRA on CKD
baseline 1.5
UA suggest UTI; follow urine cx negative
Follows with outpatient. Discussed with Dr Hollis, input appreciated
Finished antibiotic
Renal Scan with renal cortical atrophy, medical renal disease, bladder with 245 ml urine
Abd pain
now resolved
CT with cirrhosis,atlectasis; spoke with daughter and would not do any more workup
Chronic HFpEF
-Continue torsemide
-Monitor Is&Os and Daily Weights
Permanent Atrial Fibrillation
Sick Sinus Syndrome s/p pacemaker
-Continue Eliquis for anticoagulation
-Continue metoprolol for rate control
Essential Hypertension
-Continue metoprolol, hydralazine and isosorbide mononitrate
Hypothyroidism
-Continue levothyroxine
Dementia
-Monitor for mood/behavior changes during hospitalization
Anxiety/Depression/Insomnia
-Continue low dose alprazolam
-Continue melatonin
Morbid Obesity due to excess calories
-Affects all aspects of care
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
Lymphoma status post chemotherapy
Chronic anemia of renal disease--Continue ferrous sulfate
Gout--Continue allopurinol
Overactive bladder--Continue Gemtesa if family can provide
DVT proph: Eliquis
complex situation
Discussed with patient daughter, CODE STATUS changed to DNR
Code Status: Full Code
General: Well Developed, Well Nourished, No Apparent Distress and Appears Chronically Ill
HEENT: Normocephalic, Atraumatic and Moist Mucous Membranes
Respiratory: Clear to Auscultation; Negative Wheezes, Rales or Rhonchi
Cardiac: Regular Rhythm and S1/S2
GI: Soft, Nontender, Nondistended and Ostomy
Genito-urinary: No Costovertebral Tender
Musculoskeletal: No Clubbing and No Cyanosis
Skin: Warm and Dry
Neuro: Awake and Alert
Psych: Apparent Dementia
Anticipated Discharge: Today
Subjective/Interval History
-
Date of Service: November 18, 2023
denies pain
Objective Data
-
Labs:
Laboratory Results
11/18/23
07:54
WBC 5.7
Hgb 7.8 L
Hct 23.3 L
Plt Count 147
Sodium 135
Potassium 3.9
Chloride 105
Carbon Dioxide 22
BUN 104 H*
Creatinine 1.3 H
Glucose 92
Calcium 8.5
Vital Signs:
Vital Signs
Temp Pulse Resp BP Pulse Ox
97.9 F 71 18 122/57 98
11/18/23 07:45 11/18/23 09:47 11/18/23 07:45 11/18/23 09:47 11/18/23 07:45
I&O
11/17/23 11/18/23 11/19/23
06:59 06:59 06:59
Intake Total 390 / 390 950 / 950 240 / 240
Output Total 700 / 700 450 / 450
Balance -310 / -310 950 / 950 -210 / -210
--- NOTE | 2023-11-18 12:13 | W.PN.NEPH.PH ---
Today's Communication / Plan
-
dc planning
Assessment/Plan
-
IMP:
Distal Left Femur Fracture-traumatic, non operative management planned. repeat imaging in 2 weeks, outpt follow up with ortho.
Hypothermia, likely autonomic dysfunction
Anemia of Chronic Disease on ALICE through heme
mild heme + stool overnight in ileostomy but now normal stool
YAHAIRA with CKD [address] Byrne
chr Azotemia
chr D CHF
h/p small-mod pleural effusion bilat
UTI
Permanent atrial fibrillation with pacemaker
Essential hypertension
Dementia with behavioral disturbances
Hypothyroidism
Chronic pain on narcotics
Anxiety/depression
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
Lymphoma status post chemotherapy
Thrombocytopenia
OA
gout
Overactive bladder
EF 50%, DDstage2, mod TR, pulm Art pressure 61mmhg
Plan:
Recent d/c after treating CHF back in few days with fall and distal femur fx , plan non operative
follow BMP
continue diuretics
ALICE 20k 11/18
dc planning
-
-
Date of Service: November 18, 2023
CC / HPI / ROS
-
Chief Complaint:
YAHAIRA, CKD, azotemia
History of Present Illness:
cr stable at 1.3
wt stable, BP stable
hgb stable low 7.8
Review of Systems:
no cp
no sob at rest
sleeping
Labs
-
Labs:
WBC 5.7 10^3/uL (4.8-10.8) 11/18/23 07:54
RBC 2.59 10^6/uL (4.20-5.40) L 11/18/23 07:54
Hgb 7.8 g/dL (12.0-16.0) L 11/18/23 07:54
Hct 23.3 % (37.0-47.0) L 11/18/23 07:54
Plt Count 147 10^3/uL (130-400) 11/18/23 07:54
Sodium 135 mmol/L (135-145) 11/18/23 07:54
Potassium 3.9 mmol/L (3.5-5.1) 11/18/23 07:54
Chloride 105 mmol/L (98-107) 11/18/23 07:54
Carbon Dioxide 22 mmol/L (22-30) 11/18/23 07:54
BUN 104 mg/dl (7-17) H* 11/18/23 07:54
Creatinine 1.3 mg/dL (0.6-1.0) H 11/18/23 07:54
eGFR 40.05 11/18/23 07:54
Glucose 92 mg/dl (70-99) 11/18/23 07:54
Calcium 8.5 mg/dl (8.4-10.2) 11/18/23 07:54
Ubm-N-Yhynrmzlhbo Pept 56595 pg/ml 11/10/23 14:12
Albumin 3.5 g/dl (3.5-5.0) 11/10/23 14:12
Physical Exam
-
Vital Signs:
Vital Signs
Temp Pulse Resp BP Pulse Ox
97.9 F 71 18 122/57 98
11/18/23 07:45 11/18/23 09:47 11/18/23 07:45 11/18/23 09:47 11/18/23 07:45
Cardiovascular:: Regular rate and rhythm
Respiratory:: Bilateral: Coarse
Lung Excursion:: Normal
Abdomen:: Nontender and Soft
Bowel Sounds:: Normal
Extremity Edema:: +2: Bilateral:
--- NOTE | 2023-11-18 12:26 | W.DCSUMMARY ---
Discharge Summary
Discharge Data
Date of Admission: 11/10/23
Date of Discharge: 11/19/23
-
Pending Results: No
Hospital Course
88-year-old female with past medical history of CHF, pulmonary fibrillation, essential hypertension, hypothyroidism, dementia, depression, insomnia, morbid obesity, small bowel obstruction status post resection with ileostomy, lymphoma status
postchemotherapy, chronic anemia of renal disease, gout, overactive bladder, CKD came to the hospital with fall with distal left femur fracture. Patient was seen by orthopedics and was recommended to follow-up with them outpatient. Nonoperative
management was recommended by orthopedics. While patient was in the hospital she also had hypothermia which was likely thought was secondary to autonomic dysfunction. Patient also had anemia where she was transfused blood. Patient also had acute
kidney injury for which she was followed up by nephrology while she was here. While patient was in the hospital she also had episode of hematemesis. I spoke with patient's daughter and we decided to discontinue Eliquis. Given patient multiple
medical illnesses and worsening quality of life daughter decided to take patient home on hospice. Patient was then discharged home on hospice.
Discharge Plan
-
Patient Disposition: Home with Home Care
Discharge Diagnosis/Procedures: Distal Left Femur Fracture
Hypothermia, likely autonomic dysfunction
Anemia of chronic disease
Acute kidney injury on chronic kidney disease
Suspected cirrhosis
Hematemesis
Urinary retention
Diet: 2 Gram Sodium and Restrict fluids to 48 oz
Activity: With assistance and As tolerated
Driving Restrictions: No driving
Bathing Restrictions: None
Activity Restrictions/Additional Instructions:
repeat imaging in 2 weeks, outpt follow up with ortho.
Left lower extremity x-ray outpatient
Referrals:
Tray Valadez MD [Family Provider] - in less than 1 week
Simon Beltran MD [Active] - in one to two weeks
Merary Hollis MD [Active] -
Prescriptions:
New
miconazole nitrate [Miconazorb AF] 2 % Powder
1 applic topical BID Qty: 85 0RF
ondansetron 4 mg tablet,disintegrating
4 mg PO Q8H PRN (Reason: nausea and vomiting) 10 Days Qty: 30 0RF
Continued
methenamine hippurate 1 gram tablet
1 g PO BID
Gemtesa 75 mg tablet
75 mg PO DAILY@1600
therapeutic multivitamin Tablet
2 tab PO DAILY
Patient Comments:
11/10/2023, 'ez melts meltable vitamins'.
d-mannose 500 mg Capsule
500 mg PO DAILY
isosorbide mononitrate 30 mg Tablet Extended Release 24 Hr
30 mg PO DAILY 30 Days Qty: 30 0RF
acetaminophen 650 mg Tablet Extended Release
1,300 mg PO TID
alprazolam 0.5 mg Tablet
0.5 mg PO TID PRN (Reason: severe anxiety)
Patient Comments:
11/10/2023, pt. filled this medication on 10/14/2023 for 90 tablets according to PDMP.
alprazolam 0.5 mg Tablet
0.25 mg PO TID PRN (Reason: mild anxiety)
Patient Comments:
11/10/2023, pt. filled this medication on 10/14/2023 for 90 tablets according to PDMP.
fexofenadine 180 mg Tablet
180 mg PO DAILY
diclofenac sodium 1 % Gel
4 g TOPICAL BID
melatonin 5 mg Tablet
10 mg PO HS PRN (Reason: sleep)
L[place] [employer] Supplement 4,200 mg
2 cap PO DAILY
miconazole nitrate [Miconazorb AF] 2 % powder
1 applic topical BID PRN (Reason: apply under B/L breasts/armpits/abd)
pramoxine 1 % lotion
1 applic topical BID PRN (Reason: apply to B/L arms/legs/back/hands)
torsemide 20 mg tablet
40 mg PO BID 30 Days Qty: 60 0RF
Changed
tramadol 50 mg tablet
50 mg PO TID PRN (Reason: Pain) Qty: 0 0RF
Patient Comments:
11/10/2023, pt. filled this med. on 08/24/2023 for 270 tablets according to PDMP.
metoprolol succinate 50 MG tablet extended release 24 hr
25 mg PO DAILY Qty: 0 0RF
Discontinued
Eliquis 2.5 MG tablet
2.5 mg PO BID
levothyroxine 50 MCG tablet
50 mcg PO DAILY
allopurinol 100 MG tablet
100 mg PO DAILY
ferrous sulfate 325 mg (65 mg iron) Tablet
325 mg PO MOWEFR@1600
hydralazine 25 mg Tablet
25 mg PO BID 30 Days Qty: 60 0RF
cholecalciferol (vitamin D3) 50 mcg (2,000 unit) Tablet
50 mcg PO DAILY
diphenhydramine HCl [Benadryl] 25 mg Capsule
25 mg PO HS PRN (Reason: sleep)
Discharge Orders:
Discharge Patient (As Directed); Ordered 11/19/23
Ordered By: Rebel Beal
Discharge Date and Time
Discharge Date/Time: 11/19/23 19:06
--- NOTE | 2023-11-18 13:27 | CM ---
Chart reviewed and patient has been cleared for discharge to home today, patient will go by ambulance, 4:30pm sweet pickle maker. manager performance reached out to [facility] to [facility], and referral faxed. Referral sent to [facility].
[facility] to [facility]
[phone]
fax [phone]
[2023-11-18] MEDS: ZOFRAN 4 MG IV (14:22)
[2023-11-18 15:00] VITALS: BP 110/44
[2023-11-18 15:19] LABS: Hematocrit 31.2 % (37.0-47.0); Hemoglobin 9.9 g/dL (12.0-16.0)
[2023-11-18] MEDS: ULTRAM 25 MG PO ×2 (15:31→22:31)
--- NOTE | 2023-11-18 15:55 | HOSPNOTE ---
I spoke with attending and he feels patient is hospice appropriate and will be sent home tomorrow with hospice. Equipment was ordered and will be delivered. Transport is needed and OOH DNR is needed on chart. Case management aware of new plan.
[2023-11-18] MEDS: PROTONIX 40 MG PO (16:22)
[2023-11-18] MEDS: FERRLECIT 110 MG IV (16:22)
[2023-11-18] MEDS: MYLICON 80 MG PO (16:53)
[2023-11-18] MEDS: DEMADEX PO (16:53)
[2023-11-18] MEDS: XANAX 0.25 MG PO (16:53)
[2023-11-18] MEDS: MELATONIN 10 MG PO (20:52)
[2023-11-18] MEDS: XANAX 0.5 MG PO (20:52)
[2023-11-18] MEDS: APRESOLINE PO (20:59)
[2023-11-18 23:34] VITALS: BP 98/45
[2023-11-19] MEDS: SYNTHROID 50 MCG PO (05:41)
[2023-11-19 05:49] VITALS: BMI 33.3
[2023-11-19 07:45] VITALS: BP 97/47
[2023-11-19 07:53] LABS: Hematocrit 26.3 % (37.0-47.0); Hemoglobin 8.3 g/dL (12.0-16.0); Mean Corp Hgb Conc. 31.6 g/dL (33.0-37.0); Mean Corpuscular Hgb 30.6 pg (27.0-31.0); Mean Platelet Volume 10.7 fL (7.4-10.4); Platelet Count 142 10^3/uL (130-400); Red Blood Cell Count 2.71 10^6/uL (4.20-5.40); Red Cell Dist. Width 17.3 % (11.5-14.5); White Blood Cell Count 6.9 10^3/uL (4.8-10.8)
[2023-11-19 08:51] LABS: Blood Urea Nitrogen 100 mg/dl (7-17); Calcium 8.4 mg/dl (8.4-10.2); Carbon Dioxide 23 mmol/L (22-30); Chloride 102 mmol/L (98-107); Estimated Creatinine Clearance 24 ml/min; Glucose 99 mg/dl (70-99); Potassium 3.9 mmol/L (3.5-5.1); Sodium 132 mmol/L (135-145); eGFR 31.21
[2023-11-19] MEDS: DEMADEX PO ×2 (09:34→17:05)
[2023-11-19] MEDS: VITAMIN D3 (cholecalciferol) 50 MCG PO (10:00)
[2023-11-19] MEDS: IMDUR (EXTENDED RELEASE) 30 MG PO (10:00)
[2023-11-19] MEDS: TYLENOL 1000 MG PO ×2 (10:00→17:08)
[2023-11-19] MEDS: ZYLOPRIM 100 MG PO (10:00)
[2023-11-19] MEDS: PROTONIX 40 MG PO (10:01)
[2023-11-19] MEDS: DESENEX/MITRAZOL/ZEASORB 1 APPLIC TOPICAL (10:02)
[2023-11-19] MEDS: APRESOLINE PO (10:07)
[2023-11-19] MEDS: TOPROL XL PO (10:07)
--- NOTE | 2023-11-19 10:56 | W.PN.HOSP.TC ---
Addendum entered and electronically signed by Rebel Beal MD 11/20/23 08:10:
Acute urinary retention
Kwan for comfort, daughter aware
Addendum entered and electronically signed by Rebel Beal MD 11/19/23 11:09:
Time of discharge 36 minutes
Original Note:
Today's Communication/Plan
-
Monitor vital signs
see plan
Plan for home hospice
Assessment / Plan
Assessment / Plan
Distal Left Femur Fracture
suspected traumatic fracture
-apprec Orthopedics
-non operative management planned. repeat imaging in 2 weeks, outpt follow up with ortho.
-Continue immobilization and non-weight bearing
-Continue Tylenol and Tramadol
Hypothermia, likely autonomic dysfunction
-Monitor temperature
resolved. no acute infectious sx.
Thrombocytopenia
monitor
Anemia of Chronic Disease
mild heme + stool overnight in ileostomy but now normal stool
spoke with daughter; was transfused 1 unit
hgb 6.9 and was transfused, now improving
some low hgb is also 2/2 fall
episode of hematemesis 11/18; discussed with daughter and will dc further eliquis. Daughter agreeable to take her home on hospice. hospice involved. plan for dc today on hospice.
epo
Suspect YAHAIRA on CKD
baseline 1.5
UA suggest UTI; follow urine cx negative
Follows with outpatient. Discussed with Dr Hollis, input appreciated
Finished antibiotic
Renal Scan with renal cortical atrophy, medical renal disease, bladder with 245 ml urine
Abd pain
now resolved
CT with cirrhosis,atelectasis; spoke with daughter and would not do any more workup
Chronic HFpEF
-Continue torsemide; will keep it for comfort
-Monitor Is&Os and Daily Weights
Permanent Atrial Fibrillation
Sick Sinus Syndrome s/p pacemaker
dec metoprolol; dc hydralazine. dc eliquis
Essential Hypertension
-Continue metoprolol, isosorbide mononitrate
dc hydralazine
Hypothyroidism
-Continue levothyroxine
Dementia
-Monitor for mood/behavior changes during hospitalization
Anxiety/Depression/Insomnia
-Continue low dose alprazolam
-Continue melatonin
Morbid Obesity due to excess calories
-Affects all aspects of care
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
Lymphoma status post chemotherapy
Chronic anemia of renal disease--Continue ferrous sulfate
Gout--Continue allopurinol
Overactive bladder--Continue Gemtesa if family can provide
DVT proph: Eliquis
complex situation
Discussed with patient daughter, CODE STATUS changed to DNR
Code Status: Full Code
General: Well Developed, Well Nourished, No Apparent Distress and Appears Chronically Ill
HEENT: Normocephalic, Atraumatic and Moist Mucous Membranes
Respiratory: Clear to Auscultation; Negative Wheezes, Rales or Rhonchi
Cardiac: Regular Rhythm and S1/S2
GI: Soft, Nontender, Nondistended and Ostomy
Genito-urinary: No Costovertebral Tender
Musculoskeletal: No Clubbing and No Cyanosis
Skin: Warm and Dry
Neuro: Awake and Alert
Psych: Apparent Dementia
Anticipated Discharge: Today
Subjective/Interval History
-
Date of Service: November 19, 2023
denies pain today
Objective Data
-
Labs:
Laboratory Results
11/19/23
07:12
WBC 6.9
Hgb 8.3 L
Hct 26.3 L
Plt Count 142
Sodium 132 L
Potassium 3.9
Chloride 102
Carbon Dioxide 23
BUN 100 H
Creatinine 1.6 H
Glucose 99
Calcium 8.4
Vital Signs:
Vital Signs
Temp Pulse Resp BP Pulse Ox
97.4 F 71 18 97/47 92
11/19/23 07:45 11/19/23 09:34 11/19/23 07:45 11/19/23 09:34 11/19/23 07:45
I&O
11/18/23 11/19/23 11/20/23
06:59 06:59 06:59
Intake Total 950 / 950 1320 / 1320
Output Total 900 / 900
Balance 950 / 950 420 / 420
[2023-11-19] MEDS: FERRLECIT 110 MG IV (14:53)
[2023-11-19 15:35] VITALS: BP 99/67
--- NOTE | 2023-11-19 16:23 | CM ---
Patient to return to home with [facility], [facility] to deliver equipment by 5pm today.
Plan; Home with [facility]

Yesika Foutnain,
--- NOTE | 2023-11-19 16:26 | W.PN.NEPH.PH ---
Today's Communication / Plan
-
for d/c today
Assessment/Plan
-
IMP:
Distal Left Femur Fracture-traumatic, non operative management planned. repeat imaging in 2 weeks, outpt follow up with ortho.
Hypothermia, likely autonomic dysfunction
Anemia of Chronic Disease on ALICE through heme
mild heme + stool overnight in ileostomy but now normal stool
YAHAIRA with CKD [address] Byrne
chr Azotemia
chr D CHF
h/p small-mod pleural effusion bilat
UTI
Permanent atrial fibrillation with pacemaker
Essential hypertension
Dementia with behavioral disturbances
Hypothyroidism
Chronic pain on narcotics
Anxiety/depression
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
Lymphoma status post chemotherapy
Thrombocytopenia
OA
gout
Overactive bladder
EF 50%, DDstage2, mod TR, pulm Art pressure 61mmhg
Plan:
Recent d/c after treating CHF back in few days with fall and distal femur fx , plan non operative
stable renal function at baseline
chr azotemia no change
plan for home hospice
-
-
Date of Service: November 19, 2023
CC / HPI / ROS
-
Chief Complaint:
YAHAIRA, CKD, azotemia
History of Present Illness:
cr stable at 1.6
wt stable, BP stable
hgb stable low 8.3
Review of Systems:
no cp
no sob at rest
confused
Labs
-
Labs:
WBC 6.9 10^3/uL (4.8-10.8) 11/19/23 07:12
RBC 2.71 10^6/uL (4.20-5.40) L 11/19/23 07:12
Hgb 8.3 g/dL (12.0-16.0) L 11/19/23 07:12
Hct 26.3 % (37.0-47.0) L 11/19/23 07:12
Plt Count 142 10^3/uL (130-400) 11/19/23 07:12
Sodium 132 mmol/L (135-145) L 11/19/23 07:12
Potassium 3.9 mmol/L (3.5-5.1) 11/19/23 07:12
Chloride 102 mmol/L (98-107) 11/19/23 07:12
Carbon Dioxide 23 mmol/L (22-30) 11/19/23 07:12
BUN 100 mg/dl (7-17) H 11/19/23 07:12
Creatinine 1.6 mg/dL (0.6-1.0) H 11/19/23 07:12
eGFR 31.21 11/19/23 07:12
Glucose 99 mg/dl (70-99) 11/19/23 07:12
Calcium 8.4 mg/dl (8.4-10.2) 11/19/23 07:12
Gkw-P-Hphjsgyfnkm Pept 45144 pg/ml 11/10/23 14:12
Albumin 3.5 g/dl (3.5-5.0) 11/10/23 14:12
Physical Exam
-
Vital Signs:
Vital Signs
Temp Pulse Resp BP Pulse Ox
97.4 F 71 18 97/47 92
11/19/23 07:45 11/19/23 09:34 11/19/23 07:45 11/19/23 09:34 11/19/23 07:45
Cardiovascular:: Regular rate and rhythm
Respiratory:: Bilateral: CTA (anteriorly)
Lung Excursion:: Normal
Abdomen:: Nontender and Soft
Extremity Edema:: +1: Bilateral:
Kwan Catheter: No
[2023-11-19] MEDS: FEOSOL PO (17:04)
[2023-11-19] MEDS: XANAX 0.25 MG PO (17:08)
== END 2023-11-19 19:06 | disposition home health service (06) | DRG 560 ==
LOC: 4 WEST ACU 18:07
PROVIDERS: Internal Medicine; Physician Assistant; Physician Assistant Medical; Specialist; ADMITTING PHYSICIAN Internal Medicine; ATTENDING PHYSICIAN Internal Medicine; CONSULT PHYSICIAN Internal Medicine; EMERGENCY PHYSICIAN Emergency Medicine; FAMILY PHYSICIAN Family Medicine; OTHER PHYSICIAN Specialist
PROC: 30233N1 Transfusion of Nonautologous Red Blood Cells into Peripheral Vein, Percutaneous Approach (ICD-10-PCS; 2023-11-13)
DX: M97.12XA Periprosthetic fracture around internal prosthetic left knee joint, initial encounter (principal); F03.918 Unspecified dementia, unspecified severity, with other behavioral disturbance; S72.402A Unspecified fracture of lower end of left femur, initial encounter for closed fracture; I50.32 Chronic diastolic (congestive) heart failure; I48.21 Permanent atrial fibrillation; I13.0 Hypertensive heart and chronic kidney disease with heart failure and stage 1 through stage 4 chronic kidney disease, or unspecified chronic kidney disease; F03.94 Unspecified dementia, unspecified severity, with anxiety; F03.93 Unspecified dementia, unspecified severity, with mood disturbance; N17.9 Acute kidney failure, unspecified; N39.0 Urinary tract infection, site not specified; K92.0 Hematemesis; R68.0 Hypothermia, not associated with low environmental temperature; Z87.891 Personal history of nicotine dependence; D69.6 Thrombocytopenia, unspecified; Z95.0 Presence of cardiac pacemaker; I49.5 Sick sinus syndrome; N18.32 Chronic kidney disease, stage 3b; E03.9 Hypothyroidism, unspecified; F32.A Depression, unspecified; G47.00 Insomnia, unspecified; E66.01 Morbid (severe) obesity due to excess calories; D63.1 Anemia in chronic kidney disease; Z68.33 Body mass index [BMI] 33.0-33.9, adult; M10.9 Gout, unspecified; K29.70 Gastritis, unspecified, without bleeding; Z51.5 Encounter for palliative care
CPT/HCPCS: 73564; 73700; 74176; 76770; 80048; 80053; 81003; 81015; 82550; 82607; 82728; 82746; 83540; 83550; 83605; 83735; 83880; 84443; 84466; 85014; 85018; 85025; 85027; 86850; 86900; 86901; 86920; 86922; 87040; 87070; 87086; 87147; 87150; 87205; 93005; 93971; 96374; 97110; 97162; 97166; 97530; 97535; 99285; J0885; J2916; P9016